=== PATIENT | male | born 1950 | race Caucasian/White ===

== ENCOUNTER → 2018-11-19 08:50 | Outpatient (CLI) | payer MEDICARE | END | disposition home or self-care (01) | LOC: D.MRI 08:50 | PROVIDERS: ATTEND Family Medicine | DX: M23.8X1 Other internal derangements of right knee (principal) ==

== ENCOUNTER → 2019-12-02 10:07 | Outpatient (CLI) | payer MEDICARE | END | disposition home or self-care (01) | LOC: D.RAD 10-27 10:30 → D.CT 10-27 11:30 → D.RAD 10-27 11:30 | PROVIDERS: ATTEND Orthopaedic Surgery | DX: S83.231A Complex tear of medial meniscus, current injury, right knee, initial encounter (principal) ==

== ENCOUNTER → 2020-01-07 14:02 | Outpatient (CLI) | payer MEDICARE ==
--- NOTE | ~2020-01-07 | EC ---
PATIENT:SOLOMON SHAIKH DATE OF SERVICE: 01/07/20 SEX: M MEDICAL RECORD: [id number] DATE OF : 50 [facility] AGE OF PATIENT: 69 ADMISSION DATE: 01/07/20 REFERRING PHYSICIAN: INTERPRETING PHYSICIAN: DIANA LYMAN MD ECHOCARDIOGRAM REPORT ECHO CHARGES 4 ECHO COMPLETE Date: 01/07/20 CLINICAL DIAGNOSIS: CHF H/O HTN/A-FIB/CAD/PR/ DEFIBRILLATOR PLACEMENT ECHOCARDIOGRAPHIC MEASUREMENTS (adult normal given) AC root (d.<3.7cm) 3.2 cm LV Septum d (<1.2 cm> 1.1 cm Valve Excursion 1.8 cm LV Septum (systole) 1.6 cm Left Atria (s.<4.0cm> 3.6 cm LVPW d(<1.2cm) 1.2 cm RV (d.<2.3cm) 2.8 cm LVPW (sytole) 1.4 cm LV diastole(<5.6CM) 7.2 cm MV E-F(>70mm/sec) cm LV systole 5.6 cm LVOT Diameter 2.0 cm MV exc.(>10mm) cm Est.ejection fraction (50-75%) % DOPPLER: LVIT cm/sec A 83.0 cm/sec E 106 cm/sec LA cm/sec RVSP 17.3 mmHg LVOT 73.0 cm/sec AOP1/2T m/s Asc. Ao 134 cm/sec RVOT 67.0 cm/sec RA cm/sec PA 87.0 cm/sec AV Gradient Peak 7.1 mmHg AV Mean 3.6 mmHg AV Area 1.7 cm MV Gradient Peak 5.0 mmHg MV Mean 2.1 mmHg MV Area cm COMMENTS: OP - HC Ross Lift Operator: 1 BRIGETTE RICHARD Supervising Chef: 3 Dr. Wu TAPE# PACS Pericardial Effusion N DATE OF SERVICE: Adequate 2D, color flow imaging, spectral Doppler, and M-mode. LVH is present. LV internal dimensions are mildly dilated. LV is mildly globally hypokinetic, EF reduced, estimated EF 40% to 45%. Aortic valve is sclerotic without evidence of stenosis by Doppler interrogation. Left atrium is normal. Mitral valve shows no prolapse. Trace MR. Right-sided chambers are grossly normal. Trace TR. ECHOCARDIOGRAM REPORT [id number] SOLOMON SHAIKH TRANSINT:[id number] Voice Confirmation ID: [id number] DOCUMENT ID: [id number] DIANA LYMAN MD CC: [id number] DICTATION DATE: 01/11/201519 HOGSHEAD FILLER: 01/12/20 0146 DEP CLI 01/07/20 [id number] [place] [address]
== END | disposition home or self-care (01) ==
LOC: D.HCCECHO 01-06 16:00
PROVIDERS: ATTEND Internal Medicine Interventional Cardiology
DX: I25.10 Atherosclerotic heart disease of native coronary artery without angina pectoris (principal); M79.605 Pain in left leg; M79.604 Pain in right leg; M79.89 Other specified soft tissue disorders

== ENCOUNTER 2020-02-15 11:59 | Outpatient (CLI) | payer MEDICARE ==
[~2020-02-15] VITALS: Ht 172.7 cm; Wt 122.8 kg
--- NOTE | ~2020-02-15 | OP ---
PATIENT NAME: SOLOMON SHAIKH MEDICAL RECORD: [id number] :50 LOCATION:D.[facility] ADMISSION DATE: SURGEON: TOLU PRASAD MD DATE OF OPERATION: 02/15/2020 PREOPERATIVE DIAGNOSES: 1. End-of-life AICD generator. 2. Coronary artery disease. 3. Hypertension. 4. Cardiomyopathy. 5. Hyperlipidemia. POSTOPERATIVE DIAGNOSES: 1. End-of-life AICD generator. 2. Coronary artery disease. 3. Hypertension. 4. Cardiomyopathy. 5. Hyperlipidemia. PROCEDURE: Left subclavian vein 4 lead AICD generator exchange. SURGEON: Tolu Prasad MD REPORT OF PROCEDURE: The patient's left chest was prepped and draped in sterile fashion. A 20 mL of 1% lidocaine with epinephrine was infused into the surrounding tissues. The oblique incision in the left superior lateral chest was reopened and using electrocautery, we dissected down to the AICD generator. This generator was eviscerated through the wound and the leads were freed up from any attachments. We then took down all 4 leads off the generator and replaced them appropriately in the new AICD generator. This was then placed back into the subcutaneous pouch and sutured down to the pectoral fascia with an interrupted 2-0 TiCron. The wound bed was irrigated out with normal saline with antibiotic solution. The subcutaneous tissues were reapproximated with interrupted 3-0 Vicryl and the skin was closed with running subcutaneous 5-0 Monocryl. COMPLICATIONS: None. CONDITION: Stable. ANESTHESIA: Local MAC. BLOOD LOSS: Minimal. TRANSINT:[id number] Voice Confirmation ID: [id number] DOCUMENT ID: [id number] TOLU PRASAD MD CC: DANYELLE GRIMALDO MD and DIANA LYMAN MD [id number] DICTATION DATE: 02/15/20 1510 FIELD OPERATIONS TECHNICIAN: 02/15/202120 DEP CLI 02/15/20 [id number] [place] [address]
--- NOTE | ~2020-02-15 | HEMODYNAMI ---
PATIENT:SOLOMON SHAIKH MEDICAL RECORD: [id number] : 50 LOCATION:[facility] ADMISSION DATE: 02/15/20 Generatedon:02/15/202015:12 Patient name: SOLOMON SHAIKH Patient #: [id number] SSN: [id number] : 1950 Date of study: 02/15/2020 Page: Of Hemodynamic Procedure Report Patient Data Patient Demographics Procedure consent was obtained First Name: SOLOMON Gender: Male Last Name: HAWA : 1950 [facility] Initial: G Age: 69 year(s) Patient #: [id number] Race: SSN: [id number] Additional ID: [id number] Contact details Address: [address] [place] [address] [facility] State: [place] City: [place] Zip code: [address] Past Medical History Allergies: No known allergies Admission Admission Data Admission Date: 02/15/2020 Admission Time: 11:59 Arrival Date: 02/15/2020 Arrival Time: 0:00 Admit Source: Other Insurance Payor: Medicare [facility] #: [id number] Height (in.): 68 BSA: 2.32 (m2) Height (cm.): 172.72 BMI: 41.17 (kg/m2) Weight (lbs.): 270.75 Weight (kg.): 122.81 Lab Results Lab Result Date: 02/15/2020 Lab Result Time: 0:00 Biochemistry Name Units Result Min Max BUN mg/dl 14 --(--*-)-- 7 18 Creatinine mg/dl 1.1 --(--*-)-- 0.6 1.3 CBC Name Units Result Min Max Hematocrit % 44.6 --(*---)-- 42 54 Hemoglobin g/dl 14.4 --(*---)-- 13.5 17.5 Procedure Procedure Types Cath Procedure Diagnostic Procedure PPM/ICD Permanent Pacer Generator Exg. Sedation Charges Moderate Sedation up to 15 minutes Procedure Description Procedure Date Procedure Date: 02/15/2020 Procedure Start Time: 14:47 Procedure End Time: 15:06 Procedure Staff Name Function Michael Rivera MD Performing Physician Tolu Chambers MD Assisting physician Marsha Mckeon RT Monitor Marbella Veloz RT Scrub Valdez Lockwood RN Nurse Procedure Data Cath Procedure Fluoroscopy Diagnostic fluoroscopy Total fluoroscopy Time: 0 time: 0 min min Diagnostic fluoroscopy Total fluoroscopy dose: 0 dose: 0 mGy mGy Estimated blood loss: 10 ml Procedure Complications No complications Procedure Medications Medication Administration Route Dosage Oxygen etCO2 Nasal cannula 2 l/min Lidocaine 2% added to field 20 Ancef (1Gm/50ml NS) I.V.P.B 1 g Ancef Irrigation Topical 1 g (1gm/500ml NS) Versed I.V. 2 mg Fentanyl I.V. 100 mcg Versed I.V. 1 mg Fentanyl I.V. 50 mcg Versed I.V. 1 mg Fentanyl I.V. 50 mcg Hemodynamics Rest BSA: 2.32 (m2) HGB: 14.4 (g/dl) O2 Consumption: Estimated: 276.67 (ml/min) O2 Co nsumption indexed: Estimated:119.25 (ml/min/m) Heart Rate: 79 (bpm) Snapshots Pre Cath Intra NCS Post Cath Vital Signs Time Heart Resp SPO2 etCO2 NIBP (mmHg) Rhythm Pain Sedation Rate (ipm) (%) (mmHg) Status Level (bpm) 14:31:43 81 13 93 0 145/102(127) NSR (Missing) 10(A) 14:36:49 72 12 95 0 151/98(135) NSR (Missing) 10(A) 14:41:07 78 23 94 0 135/91(119) NSR (Missing) 10(A) 14:45:17 86 15 92 0 132/113(130) NSR (Missing) 9(A) 14:50:36 96 14 92 2.9 146/105(135) NSR (Missing) 9(A) 14:54:46 85 15 94 19.4 144/94(122) NSR (Missing) 9(A) 14:59:00 86 12 93 2.2 148/95(135) NSR (Missing) 9(A) 15:03:18 93 11 93 10.4 150/109(132) NSR (Missing) 10(A) 15:05:03 89 10 94 11.2 150/103(135) NSR (Missing) 10(A) 15:09:31 93 12 97 26.1 155/106(131) NSR (Missing) 10(A) Medications Time Medication Route Dose Verified Delivered Reason Notes Effective ness by by 14:30:52 Oxygen etCO2 2 Michael Buffie used for Nasal l/min NicolePeter Lockwood project development manager cannula 14:31:06 Lidocaine added 20ml Michael Vasquezian used for 2% to vial St Peter Chambers MD procedure field x 2 14:31:20 Ancef I.V.P.B 1 g Michael Buffie used for (1Gm/50ml Nicole Lockwood project development manager NS) 14:31:28 Ancef Topical 1 g Michael Buffie used for Irrigation Nicole Lockwood project development manager (1gm/500ml NS) 14:41:59 Versed I.V. 2 mg Michael Buffie for Nicole Lockwood RN sedation 14:42:06 Fentanyl I.V. 100 Michael Buffie for [facility] Nicole Lockwood RN sedation 14:49:08 Versed I.V. 1 mg Michael Buffie for Nicole Lockwood RN sedation 14:49:13 Fentanyl I.V. 50 Michael Buffie for [facility] Nicole Lockwood RN sedation 14:56:38 Versed I.V. 1 mg Michael Buffie for Nicole Lockwood RN sedation 14:56:42 Fentanyl I.V. 50 Michael Buffie for [facility] Nicole Lockwood RN sedation Procedure Log Time Note 13:58:16 Diagnostic Cath Status : Elective 13:58:58 Time tracking: Regular hours (M-F 7:00 - 5:00) 13:59:02 Plan of Care:Hemodynamics will remain stable., Cardiac rhythm will remain stable., Comfort level will be maintained., Respiratory function will remain adequate., Patient/ family verbilizes understanding of procedure., Procedure tolerated without complication., Recovers from procedure without complications.. 14:06:04 H&P Date Dictated: 02/08/2020 Within 30 days and on chart.. 14:06:05 Pre-procedure instructions explained to patient. 14:06:06 Pre-op teaching completed and patient verbalized understanding. 14:06:07 Family in waiting room. 14:06:09 Patient NPO since Midnight. 14:08:14 Patient allergic to No known allergies 14:: Arrival Date: 02/15/2020 12:00:00 AM 14:: Admit Source: Other 14:: Insurance Payor : Medicare 14:09:03 Patient Height : 68 inches 14::08 Patient Weight : 270.75 lbs 14:37 Lab Result : Hemoglobin 14.4 g/dl : Lab Result : Hematocrit 44.6 % : Lab Result : Creatinine 1.1 mg/dl : Lab Result : BUN 14 mg/dl 14: Informed consent obtained and on chart 14:: Valdez Lockwood RN sent for patient. Start room use. 14:19: Patient received from Pre/Post Procedure Room to CCL 3 Alert and oriented. Tansferred to table in Supine position. 14:19:10 Warm blankets applied, and chrystal hugger turned on for patient comfort. 14:19:10 Correct patient and procedure confirmed by team. 14:19:11 ECG and BP/O2 sat monitors applied to patient. 14:30:34 Vital chart was started 14::52 Oxygen 2 l/min etCO2 Nasal cannula was administered by Valdez Lockwood RN; used for procedure; Verbal order read back and verified. 14:31:06 Lidocaine 2% 20ml vial x 2 added to field was administered by Tolu Chambers MD; used for procedure; Verbal order read back and verified. 14:31:20 Ancef (1Gm/50ml NS) 1 g I.V.P.B was administered by Valdez Lockwood RN; use d for procedure; Verbal order read back and verified. 14:31:28 Ancef Irrigation (1gm/500ml NS) 1 g Topical was administered by Valdez Lockwood RN; used for procedure; Verbal order read back and verified. 14:32:34 Is the patient allergic to Iodine/contrast media? No. 14:32:37 Was the patient premedicated? N/A 14:32:39 Is patient on blood thinner?No 14:32:40 Patient diabetic? No. 14:32:42 If diabetic: On Metformin? N/A 14:32:43 - 14:32:44 ----Pre-sedation anethsthesia assessment.---- 14:32:47 Previous problem with sedation/anesthesia? No ? 14:32:48 Snore? Yes 14:32:49 Sleep apnea? No 14:32:50 Deviated septum? No 14:32:51 Opens mouth fully? Yes 14:32:52 Sticks out tongue? Yes 14:32:56 Airway obstruction? Yes asthma 14:32:59 Dentures? No ? 14:33:05 Patient pain scale 0/10 ?. 14:33:13 IV patent on arrival in left antecubital with 0.9% NaCl at [facility]. 14:33:16 Lab results completed and on chart. 14:33:21 Stress Test: no; N/A ? 14:33:27 Left chest area was prepped with chlora-prep and draped in sterile fashion 14:33:28 Alarms reviewed by R. N. 14:33:28 Sharps counted by scrub and verified by R.N. 14:33:33 Use device set OSMAR PPM 14:33:37 Cautery Tip Medical Accounts Receivable Specialist opened to sterile field. 14:33:39 Cautery Pushbutton Pencil opened to sterile field. 14:33:39 Mepilex Dressing ([id number]) opened to sterile field. 14:33:49 Full Disclosure recording started 14:33:52 Baseline sample Acquired. 14:35:03 Rhythm: sinus rhythm 14:40:43 3-0 Vicryl Single Pack [id number] opened to sterile field. 14:40:44 5-0 Monocryl PS2 [id number] opened to sterile field. 14:41:13 --------ALL STOP TIME OUT------ 14:41:13 Final Timeout: patient, procedure, and site verified with staff and physician. All members of the team are in agreement. 14:41:16 Left chest site verified by team. 14:41:25 Fire Safety Assessment: A--An alcohol-based skin anteseptic being used preoperatively., C--Open oxygen or nitrous oxide is being used., D--An ESU, laser, or fiber-optic light is being used. 14:41:31 Physical assessment completed. ASA score P 2 - A patient with mild systemic disease as per Michael Rivera MD. 14:41:39 Sedation plan: IV Moderate Sedation Medication:Versed, Fentanyl 14:41:59 Versed 2 mg I.V. was administered by Valdez Lockwood RN; for sedation; Verbal order read back and verified. 14:42:06 Fentanyl 100 mcg I.V. was administered by Valdez Lockwood RN; for sedation; Verbal order read back and verified. 14:44:17 Procedure started. 14:47:06 [employer] players club representative YESENIA RAMOS present for procedure. 14:47:16 Grounding pad site Left thigh. 14:47:17 Grounding pad site free from injury. 14:47:18 Lidocaine 1% was administered to left subclavicular area by Tolu Chambers MD . 14:47:50 Pre sharps counted by scrub and verified by RN: Sutures: 7; Sponges: 5; Stick needles: 2; Skin needles: 2; Blade: 1; Cautery: 1 14:49:07 2-0 Ticron Multipack ([id number]) opened to sterile field. 14:49:08 Versed 1 mg I.V. was administered by Valdez Lockwood RN; for sedation; Verbal order read back and verified. 14:49:13 Fentanyl 50 mcg I.V. was administered by Valdez Lockwood RN; for sedation; Verbal order read back and verified. 14:49:43 Incision made to left subclavicular area. 14:52:27 Generator pocket made/opened. 14:52:49 PPM Dual was removed.. 14:53:00 FreeChargea MRI PPM Dual Generator [id number] opened to sterile field. 14:54:00 PPM Dual was attached to lead(s) and inserted into pocket. 14:55:56 PPM Dual was inserted subcutaneously to left chest. 14:56:38 Versed 1 mg I.V. was administered by Valdez Lockwood RN; for sedation; Verbal order read back and verified. 14:56:42 Fentanyl 50 mcg I.V. was administered by Valdez Lockwood RN; for sedation; Verbal order read back and verified. 14:57:02 Generator was sutured in place with 2-0 ticron. 15:01:23 Device pocket was irrigated with Ancef. 15:01:25 Subcutaneous closure was completed with 3-0 vicryl. 15:01:35 Skin closure was completed with 5-0 monocryl. 15:03:10 Lt Chest incision was dressed with Mepilex dressing. 15:03:32 Post sharps counted by scrub and verified by RN: Sutures: 3; Sponges: 5 ; Stick needles: 2; Skin needles: 2; Blade: 1; Cautery: 1 15:04:02 Procedure ended.(Physican Out) 15:04:19 Fluoroscopy time 00.00 minutes. 15:04:22 Fluoroscopy dose: 0 mGy 15:04: Flurop Dose total: 0 15:04:24 Dose Area Product ? mGy/cm. 15:04:27 Sharps counted by scrub and verified by R.N. 15:04:35 Post-procedure physical assessment completed. ASA score P 2 - A patient with mild systemic disease as per Michael Rivera MD. 15:04:41 Post procedure rhythm: paced 15:04:44 Estimated blood loss: 10 ml 15:04:46 Post procedure instruction explained to patient.Patient verbalizes understanding. 15:04:46 Patient needs reinforcement of post procedure teaching. 15:05:20 Procedure type changed to Cath procedure, Diagnostic procedure, PPM/ICD , Permanent Pacer Generator Exg., Sedation Charges, Moderate Sedation up to 15 minutes 15:06:17 Procedure and supply charges have been captured, reviewed, submitted an d are correct. 15:06:22 Procedure Complication : No complications 15:06:29 Operative report dictated upon procedure completion. 15:06:29 See physician's report for complete and final results. 15:06:35 Report given to Pre/Post Procedure Room. 15:06:39 Patient transfered to Pre/Post Procedure Room with Stretcher. 15:06:42 Procedure ended. 15:06:42 Full Disclosure recording stopped 15:10:17 Vital chart was stopped 15:10:18 End room use (Document Last) 15:10:53 Medtronic 4074-52 PPM Lead opened to sterile field. Device Usage Item Name Manufacture Quantity Catalog Hospital Part Current Minimal Lot# / Number Charge Number Stock Stock Serial# Code Cautery Tip Microtek 1 [id number] [id number] 5 Medical Accounts Receivable Specialist [employer] Cautery Microtek 1 [id number] [id number] 90064 426503 5 Pushbutton [employer] Pencil Mepilex Cardinal 1 [id number] [id number] 012197 500462 5 Dressing Health (982626) 3-0 Vicryl Ethicon 1 [id number] 975202 977241 907831 5 Single Pack [id number] 5-0 Monocryl Ethicon 1 [id number] 628754 082832 5 PS2 Y495G 2-0 Ticron Ethicon 2 [id number] 104719 07777 544373 5 Multipack ([id number]) Medtronic Medtronic 1 [id number] 532455 660996 269024 5 Advisa MRI [id number] PPM Dual EXP Generator : [id number] 11/29/2020 Medtronic Medtronic 1 4074-52 199202 [id number] 5 4074-52 PPM Lead Signature Audit [place] Stage Time Signature Unsigned Intra-Procedure 02/15/2020 Marsha Mckeon 3:10:53 PM RT(R) Intra-Procedure 02/15/2020 Valdez Lockwood RN 3:12:08 PM Intra-Procedure 02/15/2020 Michael Slater 3:12:36 PM Peter JOSEPH [address] [place] [address]
[2020-02-15 13:09] VITALS: BP 162/99; Ht 172.7 cm; Wt 122.8 kg
[2020-02-15 13:16] LABS: ANION GAP 10.1 mmol/L (8-16); CARBON DIOXIDE 28.2 mmol/L (21.0-32.0); CREATININE - SERUM 1.1 mg/dL (0.6-1.3); POTASSIUM - SERUM 4.3 mmol/L (3.5-5.1)
[2020-02-15 13:20] LABS: HEMATOCRIT 44.6 % (42.0-54.0); HEMOGLOBIN 14.4 g/dL (13.5-17.5); MCH 29.1 pg (26.0-34.0); MCHC 32.3 g/dL (31.0-37.0); MCV 90.1 fL (80.0-100.0); MEAN PLATELET VOLUME 10.6 fL (7.4-10.4); RBC 4.95 10x6/uL (4.20-6.10); RDW 14.6 % (11.5-14.5); WBC 7.5 10x3/uL (4.8-10.8)
[2020-02-15 13:24] LABS: APTT 28.7 SECONDS (22.8-39.4); INR 0.94 (0.85-1.17); PROTIME 12.5 SECONDS (11.6-15.0)
[2020-02-15] MEDS ORDERED: HYDROCODON-ACE1 EA10 PO ×2 (15:04→15:22)
--- NOTE | 2020-02-15 15:20 | NUR ---
PT RECEIVED BACK TO ROOM VIA STRETCHER FROM SEGMENT ASSEMBLER. XRAY AT BS. PT AWAKE BUT DROWSY, PT PLACED ON CARDIAC MONITORS AND O2 VIA NC AT 2L. SM MEDIPLEX DRESSING TO U LEFT CHEST, NO BLEEDING OR SWELLING NOTED. PT DENIES PAIN OR DISCOMFORT. VSS. HR PACED 78, BP 143/92, RR 10. NO IV, IT WAS PULLED OUT IN THE SEGMENT ASSEMBLER. CALL LIGHT IN REACH, AT BS.
[2020-02-15] MEDS ORDERED: ALDACTONE25 MG PO (15:21)
--- NOTE | 2020-02-15 15:45 | NUR ---
PT SLEEPING COMFORTABLY. VSS. MEDIPLEX DRESSING CDI. AT BS, CALL LIGHT IN REACH
--- NOTE | 2020-02-15 16:30 | NUR ---
1620 SANDWICH TRAY AND DRINK SERVED. PT RESTING COMFORTABLY. TOLERATED SANDWICH TRAY AND DRINK. MEDIPLEX DRESSING CDI NO S/S BLEEDING. VSS.
--- NOTE | 2020-02-15 16:48 | NUR ---
DISCHARGE INSTRUCTIONS REVIEWED W PT AND , BOTH VERBALIZED UNDERSTANDING. MONITORS REMOVED AND PT UP TO DRESS FOR DISCHARGE WITH ASSIST FROM .
--- NOTE | 2020-02-15 17:05 | NUR ---
PT TO BR VIA WC, VOIDING W/O DIFFICULITY. PT THEN DISCHARGED VIA WC TO WAITING IN PRIVATE VEHICLE. PT HAD ALL BELONGINGS AND DISCHARGE PAPERWORK
== END 2020-02-15 17:00 | disposition home or self-care (01) ==
LOC: D.CATH 11:59
PROVIDERS: ATTEND Internal Medicine Interventional Cardiology
DX: Z45.02 Encounter for adjustment and management of automatic implantable cardiac defibrillator (principal); I25.10 Atherosclerotic heart disease of native coronary artery without angina pectoris; I10 Essential (primary) hypertension; I42.9 Cardiomyopathy, unspecified; E78.5 Hyperlipidemia, unspecified; I25.2 Old myocardial infarction; J45.909 Unspecified asthma, uncomplicated

== ENCOUNTER → 2020-04-04 17:17 | Outpatient (CLI) | payer MEDICARE ==
[2020-02-15 13:09] VITALS: BMI 41.1
[~2020-04-04 17:17] MED LIST: ALDACTONE25 MG PO; HYDROCODON-ACE1 EA10 PO
== END | disposition home or self-care (01) ==
LOC: D.LABREF 17:17
PROVIDERS: ATTEND Orthopaedic Surgery
DX: M17.11 Unilateral primary osteoarthritis, right knee (principal)

== ENCOUNTER 2020-04-06 08:41 | Inpatient (IN) | payer MEDICARE ==
[~2020-04-06] VITALS: Ht 180.3 cm; Wt 125.2 kg
--- NOTE | ~2020-04-06 | HEMODYNAMI ---
PATIENT:SOLOMON SHAIKH MEDICAL RECORD: [id number] : 50 LOCATION[id number] ADMISSION DATE: 05/01/20 Generatedon:05/04/202011:32 Patient name: SOLOMON SHAIKH Patient #: [id number] SSN: [id number] : 1950 Date of study: 05/04/2020 Page: Of Hemodynamic Procedure Report Patient Data Patient Demographics Procedure consent was obtained First Name: SOLOMON Gender: Male Last Name: HAWA : 1950 Middle Initial: Kevin Age: 69 year(s) Patient #: [id number] Race: SSN: [id number] Additional ID: [id number] Contact details Address: [address] [place] [address] [facility] State: [place] City: [place] Zip code: [address] Past Medical History Allergies: No known allergies Admission Admission Data Admission Date: 05/01/2020 Admission Time: 5:50 Arrival Date: 05/04/2020 Arrival Time: 0:00 Admit Source: Other Insurance Payor: Medicare Room #: D.2114 [facility] #: [id number] Height (in.): 70.87 BSA: 2.41 (m2) Height (cm.): 180 BMI: 38.58 (kg/m2) Weight (lbs.): 275.58 Weight (kg.): 125 Lab Results Lab Result Date: 05/04/2020 Lab Result Time: 0:00 Biochemistry Name Units Result Min Max BUN mg/dl 13 --(--*-)-- 7 18 Creatinine mg/dl 1 --(--*-)-- 0.6 1.3 eGFR ml/min 79.71173 *-(----)-- 90 120 NONAFRICAN CBC Name Units Result Min Max Hemoglobin g/dl 11.6 *-(----)-- 13.5 17.5 Procedure Procedure Types Cath Procedure Diagnostic Procedure LHC [facility] w/Coronaries Sedation Charges Moderate Sedation up to 15 minutes PCI Procedure Coronary Stent Coronary Stent Initial Hemochron ACT Test Procedure Description Procedure Date Procedure Date: 05/04/2020 Procedure Start Time: 11:04 Procedure End Time: 11:23 Procedure Staff Name Function Michael Rivera MD Performing Physician Fernanda Turcios RT Monitor Valdez Lockwood RN Nurse Berkley Logan RT Scrub Indication Chest discomfort Procedure Data Cath Procedure Fluoroscopy Diagnostic fluoroscopy Total fluoroscopy Time: 4.7 time: 4.7 min min Diagnostic fluoroscopy Total fluoroscopy dose: dose: 1411 mGy 1411 mGy Contrast Material Contrast Material Type Amount (ml) Isovue 300 83 Entry Location Entry Primary Successful Side Size Upsize Upsize Entry Closure Perez ccessful Closure Location (Fr) 1 (Fr) 2 (Fr) Remarks Device Remarks Radial Right 6 Fr Mechanical artery Short Compression Estimated blood loss: 5 ml Diagnostic catheters Device Type Used For End Catheter Placement DIAGNOSTIC Buhl 110cm 5 Procedure Fr catheter ([id number]) DIAGNOSTIC AR MOD 5Fr Procedure Catheter ([id number]) Procedure Complications No complications Procedure Medications Medication Administration Route Dosage Oxygen etCO2 Nasal cannula 2 l/min Lidocaine 2% added to field 20 Heparin Flush Bag added to field 2 bags (1000units/500ml NS) 0.9% NaCl I.V. 100 ml/hr Radial Cocktail I.A. 1 syringe (Verapamil 2mg/Nitro 400mcg/Heparin 1500units) Versed I.V. 1 mg Fentanyl I.V. 50 mcg Heparin Bolus I.V. 5000 units Integrilin (Bolus I.V. 11.3 ml 2mg/ml) Benadryl I.V. 50 mg Dobutamine I.V. drip 5 mcg/kg/min (500mg/250ml D5W) Plavix P.O. 600 mg Hemodynamics Rest BSA: 2.41 (m2) HGB: 11.6 (g/dl) O2 Consumption: Estimated: 299.87 (ml/min) O2 Co nsumption indexed: Estimated:124.43 (ml/min/m) Heart Rate: 93 (bpm) Pressure Samples Time Site Value (mmHg) Purpose Heart Use Rate(bpm) 11:05 LV 88/0,-1 Snapshot 95 Gradients Valve Time Site Site Mean SEP/DFP Peak To Heart Use 1 2 (mmHg) (sec/min) Peak Rate (mmHg) (bpm) Aortic 11:06 LV AO 95 Snapshots Pre Cath Intra NCS Post Cath Vital Signs Time Heart Resp SPO2 etCO2 NIBP (mmHg) Rhythm Pain Sedation Rate (ipm) (%) (mmHg) Status Level (bpm) 10:52:25 92 15 95 12 152/100(128) NSR 0 (11) 10(A) , No pain 10:57:01 92 17 95 8.3 162/85(134) NSR 0 (11) 10(A) , No pain 11:01:23 90 18 94 0 141/91(114) NSR 0 (11) 10(A) , No pain 11:05:47 96 13 93 10.5 117/74(89) NSR 0 (11) 9(A) , No pain 11:09:57 93 17 93 7.5 117/74(97) NSR 0 (11) 9(A) , No pain 11:14:09 88 14 91 10.5 133/83(99) NSR 0 (11) 9(A) , No pain 11:18:21 88 19 93 0 135/82(106) NSR 0 (11) 9(A) , No pain 11:23:20 88 18 95 21.1 132/92(115) NSR 0 (11) 10(A) , No pain Medications Time Medication Route Dose Verified Delivered Reason Notes Effectiveness by by 10:55:40 Benadryl I.V. 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 100 ml/hr Michael Kellogg Per physician [facility] Lockwood RN, MD 10:59:45 Versed I.V. 1 mg Michael Kellogg for sedation [facility] Peter Lockwood RN, MD 10:59:50 Fentanyl I.V. 50 mcg Michael Kellogg for sedation [facility] Peter Lockwood RN, MD 11:03:51 Radial Cocktail I.A. 1 syringe Michael Rodriguez for (Verapamil [place] vasodilation 2mg/Nitro MD JOSEPH 400mcg/Heparin 1500units) 11:13:55 Heparin Bolus I.V. 5000 units Michael Kellogg for verified [facility] Peter Lockwood RN anticoagulation with dr MD hackett 11:17:21 Integrilin I.V. 11.3 ml Michael Kellogg for wasted (Bolus 2mg/ml) [facility] Lockwood RN antiplatelet 8.7 ml therapy of vial 11:24:04 Dobutamine I.V. 5 Michael Kellogg Per physician (500mg/250ml drip mcg/kg/min [facility] Lockwood RN D5W) 11:24:25 Plavix P.O. 600 mg Michael Kellogg for [facility] Lockwood RN antiplatelet therapy Procedure Log Time Note 10:13:12 Arrival Date: 05/04/2020 12:00:00 AM 10:13:14 Admit Source: Other 10:13:17 Insurance Payor : Medicare 10:13:34 Patient Height : 70.87 inches 10:13:37 Patient Weight : 275.58 lbs 10:14:33 Lab Result : BUN 13 mg/dl 10:14:33 Lab Result : eGFR NONAFRICAN 79.55069 ml/min 10:14:33 Lab Result : Hemoglobin 11.6 g/dl 10:14:33 Lab Result : Creatinine 1 mg/dl 10:15:10 Indication : Chest discomfort 10:15:37 Procedure Status Urgent Heart Cath (IP). 10:16:26 Berkley Logan RT(R) (CV) sent for patient. Start room use. 10:16:28 Time tracking: Regular hours (M-F 7:00 - 5:00) 10:16:34 Plan of Care:Hemodynamics will remain stable., Cardiac rhythm will remain stable., Comfort level will be maintained., Respiratory function will remain adequate., Patient/ family verbilizes understanding of procedure., Procedure tolerated without complication., Recovers from procedure without complications.. 10:16:40 Patient received from Med II to CCL 2 Alert and oriented. Tansferred to table in Supine position. 10:16:43 Signed procedure consent form obtained from patient. 10:16:55 H&P Date Dictated: 05/03/2020 Within 30 days and on chart., H&P Addendum completed by physician on day of procedure. (MUST COMPLETE FOR ALL OUTPATIENTS). 10:31:48 Patient allergic to No known allergies 10:51:16 Vital chart was started 10:54:51 Baseline sample Acquired. 10:54:54 Full Disclosure recording started 10:54:58 Family in patients room. 10:55:00 Patient NPO since Midnight. 10:55:05 Is the patient allergic to Iodine/contrast media? No. 10:55:07 Was the patient premedicated? Yes 10:55:08 Is patient on blood thinner?Yes 10:55:13 ACC The patient was administered the following blood thiners within the last 24 hours: Eliquis 10:55:16 Patient diabetic? No. 10:55:20 Snore? Yes 10:55:22 Sleep apnea? No 10:55:26 Airway obstruction? Unknown ? 10:55:30 Patient pain scale 0/10 ?. 10:55:39 IV patent on arrival in left forearm with 0.9% NaCl at KVO. 10:55:40 Benadryl 50 mg I.V. was administered by Valdez Lockwood RN; used for procedure; Verbal order read back and verified. 10:55:43 Lab results completed and on chart. 10:55:51 Right Radial & Left Groin area was prepped with chlora-prep and draped in sterile fashion 10:55:52 Alarms reviewed by R. N. 10:55:53 Sharps counted by scrub and verified by R.N. 10:55:55 Physician arrived 10:55:56 --------ALL STOP TIME OUT------ 10:55:57 Final Timeout: patient, procedure, and site verified with staff and physician. All members of the team are in agreement. 10:56:01 Right Radial & Left Groin site verified by team. 10:56:05 Fire Safety Assessment: A--An alcohol-based skin anteseptic being used preoperatively., C--Open oxygen or nitrous oxide is being used., D--An ESU, laser, or fiber-optic light is being used. 10:56:11 Physical assessment completed. ASA score P 2 - A patient with mild systemic disease as per Michael Rivera MD. 10:56:15 2) 60-89 Mildly reduced kidney function, and other findings (as for stage 1) point to kidney disease. 10:56:18 Maximum allowable contrast dose (3.7 X eGFR X 0.75)220 ml. 10:56:23 Sedation plan: IV Moderate Sedation Medication:Versed, Fentanyl 10:56:28 Use device set Radial Dx or PCI 10:59:07 Oxygen 2 l/min etCO2 Nasal cannula was administered by Valdez Lockwood RN; used for procedure; Verbal order read back and verified. 10:59:14 Lidocaine 2% 20ml vial added to field was administered by Michael Rivera MD; for local anesthetic; Verbal order read back and verified. 10:59:18 ACIST Syringe (99126) opened to sterile field. 10:59:19 Heparin Flush Bag (1000units/500ml NS) 2 bags added to field was administered by Michael Rivera MD; used for procedure; Verbal order read back and verified. 10:59:19 Medline Cath Pack ([id number]) opened to sterile field. 10:59:20 Bag Decanter (2002S) opened to sterile field. 10:59:21 ACIST Hand Control (49585) opened to sterile field. 10:59:21 ACIST Manifold (86471) opened to sterile field. 10:59:27 0.9% NaCl 100 ml/hr I.V. was administered by Valdez Lockwood RN; Per physician; Verbal order read back and verified. 10:59:27 MBrace Wrist Support ([id number]) opened to sterile field. 10:59:29 EMERALD Guide Wire (093-303) opened to sterile field. 10:59:30 SHEATH 6FR RAIN ([id number]) opened to sterile field. 10:59:45 Versed 1 mg I.V. was administered by Valdez Lockwood RN; for sedation; Verbal order read back and verified. 10:59:50 Fentanyl 50 mcg I.V. was administered by Valdez Lockwood RN; for sedation; Verbal order read back and verified. 11:03:51 Radial Cocktail (Verapamil 2mg/Nitro 400mcg/Heparin 1500units) 1 syringe I.A. was administered by Michael Rivera MD; for vasodilation; Verbal order read back and verified. 11:04:10 Procedure started. 11:04:21 Local anesthetic to right radial artery with Lidocaine 2% by Michael Rivera MD.INITIAL ACCESS ONLY 11:04:32 A 6 Fr Short sheath was inserted into the Right Radial artery 11:04:37 J wire advanced. 11:04:46 A DIAGNOSTIC Buhl 110cm 5 Fr catheter (945160) was advanced over the wire and used for Procedure. 11:04:58 LV angiography performed. 11:06:15 EF : 20 % 11:06:40 LCA angiography performed. 11:08:47 Catheter removed. 11:09:02 A DIAGNOSTIC AR MOD 5Fr Catheter (316592S) was advanced over the wire and used for Procedure. 11:09:08 RCA angiography performed. 11:11:20 Catheter removed. 11:13:18 Proceeding to intervention. 11:13:33 Pre PCI Site: [place] mRCA has 80% stenosis. 11:13:44 6 Fr hs1 guide catheter was inserted over the wire 11:13:55 Heparin Bolus 5000 units I.V. was administered by Vadlez Lockwood RN; for anticoagulation; verified with dr hackett Verbal order read back and verified. 11:14:27 BMW 300cm [place] 2 J wire ([id number]) opened to sterile field. 11:14:28 INFLATOR Merit BasixCompak (YL3692) opened to sterile field. 11:14:29 GUIDE 6FR HS I catheter (LA6HSI) opened to sterile field. 11:14:52 BMW wire advanced. 11:17:21 Integrilin (Bolus 2mg/ml) 11.3 ml I.V. was administered by Valdez Lockwood RN; for antiplatelet therapy; wasted 8.7 ml of vial Verbal order read back and verified. 11:19:25 Place stent Inflation Number: 1 A INTEGRITY 4.0 x 18 stent ([id number]) was prepped and advanced across the Mid RCA 80. The stent was deployed at 14 CHALO for 0:23 (min:sec) 0. 11:19:55 ZEPHYR LARGE TR BAND (391456) opened to sterile field. 11:20:04 Stent catheter was removed intact over wire. 11:20:29 Sheath removed intact; hemostasis achieved with Mechanical Compression to the Right Radial artery. 11:20:32 Procedure ended.(Physican Out) 11:21:10 Fluoroscopy time 04.70 minutes. 11:21:16 Fluoroscopy dose: 1411 mGy 11:21:16 Flurop Dose total: 1411 11:21:22 Dose Area Product 66297 mGy/cm. 11:21:33 Contrast amount:Isovue 300 83ml. 11:21:35 Maximum allowable dose exceeded? No. 11::39 Hammond band inflated with 10cc of air. 11::40 Insertion/operative site no bleeding no hematoma. 11:21:41 Post Procedure Pulses reassessed and unchanged 11:21:45 Post-procedure physical assessment completed. ASA score P 3 - A patient with severe systemic disease as per Michael Rivera MD. 11:21:48 Post procedure rhythm: unchanged. 11:21:51 Estimated blood loss: 5 ml 11:21:53 Post procedure instruction explained to patient.Patient verbalizes understanding. 11:21:55 Patient needs reinforcement of post procedure teaching. 11:22:37 Procedure type changed to Cath procedure, Diagnostic procedure, LHC, [facility] w/Coronaries, Sedation Charges, Moderate Sedation up to 15 minutes, PCI procedure, Coronary Stent, Coronary Stent Initial, Hemochron ACT Test 11::38 Procedure and supply charges have been captured, reviewed, submitted and are correct. 11:23:14 Procedure Complication : No complications 11:23:16 Vital chart was stopped 11::21 [facility] Findings: MVD- PCI performed (see procedure note) 11:23:29 Report given to [facility]. 11:23:33 Patient transfered to [facility] with Bed. 11::35 Procedure ended. 11::35 Full Disclosure recording stopped 11:23:48 End room use (Document Last) 11:24:04 Dobutamine (500mg/250ml D5W) 5 mcg/kg/min I.V. drip was administered by Valdez Lockwood RN; Per physician; Verbal order read back and verified. 11:24:07 End room use (Document Last) 11:24:25 Plavix 600 mg P.O. was administered by Valdez Lockwood RN; for antiplatelet therapy; Verbal order read back and verified. 11:24:40 End room use (Document Last) 11:27:41 ACT drawn and resulted at out of range high seconds. (normal therapeutic range 180-240 seconds). Intervention Summary Intervention Notes Time ActionType Lesion and Equipment Action# Pressure Duration Attributes Used 11:19:25 Place stent Mid RCA INTEGRITY 1 14 00:23 4.0 x 18 stent ([id number]) Device Usage Item Name Manufacture Quantity Catalog Hospital Part Current Minim al Lot# / Number Charge Number Stock Stock Serial# Code ACIST Acist 1 19263 734209 759091 304498 20 Syringe Medical (87760) Systems Inc Medline Cath Medline 1 [id number] 927794 10145 695292 5 Pack ([id number]) Bag Decanter Microtek 1 2001S 662968 95940 126413 5 (2001S) Medical Inc. ACIST Hand Acist 1 13446 735847 649772 940401 5 Control Medical (49243) Systems Inc ACIST Acist 1 12387 617778 342252 373871 5 Manifold Medical (99667) Systems Inc MBrace Wrist Advanced 1 140-0250-00 269555 31530 036760 5 Support Vascular ([id number]) Dynamics EMERALD Cardinal 1 502-455 704978 669280 406973 5 Guide Wire [facility] (502455) SHEATH 6FR Cardinal 1 0284744 770997 9114714 232837 5 [facility] (4345893) DIAGNOSTIC Terumo 1 405013 170494 792884 226064 5 Buhl 110cm 5 Fr catheter (653135) DIAGNOSTIC Cardinal 1 [id number] 378878 723326 356481 15 AR MOD 5Fr Health Catheter (430200P) BMW 300cm [place] 1 [id number] 081498 319528 019335 5 [place] 2 Vascular J wire (9638944X) INFLATOR Merit 1 DQ2073 628098 592787 501441 15 Social Game Universe Medical BasixCompak (QB6241) GUIDE 6FR HS Medtronic 1 LA6HSI 659426 38102 224082 1 I catheter (LA6HSI) INTEGRITY Medtronic 1 [id number] 223416 884247 697781 5 [id number] 4.0 x 18 stent ([id number]) ZEPHYR LARGE Cardinal 1 326698 570610 5900171 941387 5 TR X Plus Two Solutions (671365) Signature Audit [place] Stage Time Signature Unsigned Intra-Procedure 05/04/2020 Fernanda Turcios 11:24:07 AM RT(R) Intra-Procedure 05/04/2020 Valdez Lockwood RN 11:24:40 AM Intra-Procedure 05/04/2020 Michael Slater 11:32:02 AM Peter JOSEPH Signatures Performing Physician : Signature : Michael Rivera MD Date : Time : Monitor : Fernanda Tam Signature : RT Date : Time : Nurse : Buffie Lockwood RN Signature : Date : Time : [address] [place] [address]
[2020-04-26 10:11] LABS: EOSINOPHILS 5.2 % (0-7); HEMATOCRIT 45.5 % (42.0-54.0); HEMOGLOBIN 14.8 g/dL (13.5-17.5); IMMATURE GRANULOCYTES 0.6 % (0-5); MCH 29.2 pg (26.0-34.0); MCHC 32.5 g/dL (31.0-37.0); MCV 89.9 fL (80.0-100.0); MEAN PLATELET VOLUME 10.7 fL (7.4-10.4); MONOCYTES 7.8 % (2-11); NEUTROPHILS 60.4 % (40-80); PLATELET COUNT 183 10x3/uL (130-400); RBC 5.06 10x6/uL (4.20-6.10); RDW 14.2 % (11.5-14.5); WBC 6.9 10x3/uL (4.8-10.8)
[2020-04-26 10:17] LABS: ANION GAP 8.9 mmol/L (8-16); CALCIUM 9.2 mg/dL (8.5-10.1); CARBON DIOXIDE 28.6 mmol/L (21.0-32.0); CREATININE - SERUM 1.2 mg/dL (0.6-1.3); POTASSIUM - SERUM 4.5 mmol/L (3.5-5.1)
[2020-04-26 10:21] LABS: BILIRUBIN NEGATIVE (NEGATIVE); KETONE NEGATIVE (NEGATIVE); NITRITE NEGATIVE (NEGATIVE); UROBILINOGEN NORMAL mg/dL (< 2)
[2020-04-26 10:29] LABS: APTT 27.2 SECONDS (22.8-39.4); INR 0.93 (0.85-1.17); PROTIME 12.5 SECONDS (11.6-15.0)
[2020-05-01] VITALS (13 sets, daily range): BP systolic 97–148; BP diastolic 61–90; BMI 38.5; BMI 38.3
--- NOTE | 2020-05-01 08:27 | NUR ---
THROUGH TRAFFIC KEPT TO A MINIMUM. HIBACLENS AND ALCOHOL USED TO CLEAN BEFORE PREPPING. STERILE GOWNED AND GLOVED TO PREP WITH CHLORAPREP.
--- NOTE | 2020-05-01 10:44 | NUR ---
PT ARRIVED TO UNIT. VS STABLE. QUICK START, ADMISSION ASSESSMENT, ADMISSION HISTORY AND SUICIDE SCREEN COMPLETED. MEDS GIVEN PER EMAR. NOT AT BEDSIDE AT THIS TIME. PT SLEEPING AT THIS TIME. EASILY AWAKENED. CL IN REACH. WCTM.
--- NOTE | 2020-05-01 10:53 | NUR ---
PT HAS ARRIVED. PUT BELONGINGS IN ROOM. MADE SURE I HAD THE RIGHT PHONE NUMBER AND SHE HAS STEPPED OUTSIDE. PT SLEEPING. VS STABLE. CL IN REACH. WCTM
--- NOTE | 2020-05-01 14:01 | MORECARE ---
CASE MANAGEMENT DISCHARGE SUMMARY PATIENT: SOLOMON ZAIDI UNIT: [id number] ADM DATE: 05/01/20 AGE: 69 : 50 SEX: M ROOM/BED: D.1211 AUTHOR: JACKIE,DOC PHYSICIAN: REFERRING PHYSICIAN: FATIMAH MARIANO MD DATE OF SERVICE: 05/01/20 Discharge Plan Patient Name: SOLOMON ZAIDI Facility: [facility]:Ethel : 1950 Planned Disposition: Anticipated Discharge Date: 05/04/20 Discharge Date: Expected LOS: 3 Initial Reviewer: [email or web address] Initial Review Date: 05/01/2020 Generated: 05/01/20 3:00 pm Comments DCP- Discharge Planning Updated by [email or web address]: Pearl Grubbs on 05/01/20 12:[address] CM met with patient and , Oly Zaidi ([phone]) regarding dc plans. Patient is drowsy and request that his in interview. 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 PCP: Dr. York. Pharmacy: [facility]. DME: walker, cane. A CPM was delivered to the home, as well OIL AND GAS RECRUITER. CM discussed HHS, OP Therapy, Rehab, SNF. PT has not worked with the patient as yet, so CM will re-visit tomorrow in order to determine DC needs. CM left a copy of HH agencies and OP Therapy with the patient's . CM will follow and assist PRN with DC needs. DCPIA - Discharge Planning Initial Assessment Updated by [email or web address]: Pealr Grubbs on 05/01/20 1:58 pm * Is the patient Alert and Oriented? Yes * How many steps to enter\exit or inside your home? 3 wide w/r * PCP Dr. York * Pharmacy [facility], [email or web address] * Preadmission Environment Home with Family * ADLs Independent * Equipment Cane Rolling Walker * Other Equipment CPM * List name and contact numbers for known caregivers / representatives who currently or will assist patient after discharge: Oly Zaidi () [phone] * Verbal permission to speak to the caregivers and representatives has been obtained from the patient. Yes * Community resources currently utilized None * Additional services required to return to the preadmission environment? Yes * Can the patient safely return to the preadmission environment? Yes * Has this patient been hospitalized within the prior 30 days at any hospital? No Patient Name: SOLOMON ZAIDI Page [id number] at 1401 All edits/amendments must be made on the electronic document DICTATION DATE: 05/01/201400 APRICOT PACKER: CHIDI 05/01/201400 RPT#: [id number] DC DATE: STATUS: ADM IN [facility] [address] [place] [address] END OF REPORT
[2020-05-01 14:22] LABS: ALBUMIN 3.4 g/dL (3.4-5.0); ANION GAP 6.5 mmol/L (8-16); BILIRUBIN - TOTAL 0.17 mg/dL (0.2-1.3); CALCIUM 8.2 mg/dL (8.5-10.1); CARBON DIOXIDE 30.7 mmol/L (21.0-32.0); CREATININE - SERUM 1.2 mg/dL (0.6-1.3); POTASSIUM - SERUM 4.2 mmol/L (3.5-5.1); PROTEIN - SERUM 6.8 g/dL (6.4-8.2)
[2020-05-01 14:29] LABS: BASOPHILS 0.3 % (0-2); EOSINOPHILS 0.1 % (0-7); HEMATOCRIT 41.7 % (42.0-54.0); HEMOGLOBIN 13.5 g/dL (13.5-17.5); IMMATURE GRANULOCYTES 0.4 % (0-5); LYMPHOCYTES 7.2 % (15-50); MCH 29.5 pg (26.0-34.0); MCHC 32.4 g/dL (31.0-37.0); MEAN PLATELET VOLUME 10.8 fL (7.4-10.4); MONOCYTES 2.8 % (2-11); NEUTROPHILS 89.2 % (40-80); PLATELET COUNT 168 10x3/uL (130-400); RBC 4.58 10x6/uL (4.20-6.10); RDW 14.2 % (11.5-14.5); WBC 10.8 10x3/uL (4.8-10.8)
--- NOTE | 2020-05-01 15:54 | NUR ---
IN ROOM. NO CO OF PAIN AT THIS TIME. PT LAID BACK IN BED FOR COMFORT. CL IN REACH. BED ALARM ON. WCTM
--- NOTE | 2020-05-01 19:00 | NUR ---
BEDSIDE REPORT RECEIVED WITH NIKHIL BAE IN ROOM. PATIENT CALM, ALERT, AND ORIENTED TO SELF AND SURROUNDINGS. AT BEDSIDE. PATIENT RESPONDS TO QUESTIONS APPROPRIATELY WITH SOME GARBLED SPEECH, BUT EASILY COMPREHENDABLE. PATIENT HAS IVF FLUIDS INFUSING PER ORDER TO PATENT 20 G IV TO THE LEFT HAND. PATIENT CURRENTLY ON CPM PER ORDER. PERIPHERAL PULSES ASSESSED, PALPABLE DORSALIS PEDAL PULSE. EXTREMETY WARM, PATIENT WIGGLES TOES UPON COMMAND, WITH LESS THAN THREE SECOND CAPILLARY REFILL. DENIES PAIN AND DISCOMFORT AT THIS TIME. CPOC.
--- NOTE | 2020-05-01 19:35 | NUR ---
BLADDER SCAN PERFORMED ON PATIENT WITH NIKHIL BAE. PATIENT HAS NOT VOIDED SINCE 1000. RECEIVED RESULTS OF 600-810 IN BLADDER. EXPLAINED TO PATIENT AND AT BEDSIDE THAT IN AND OUT CATH WOULD NEED TO BE PERFORMED TO STIMULATE URINATION/PROSTATE. VERBALIZED UNDERSTANDING.
--- NOTE | 2020-05-01 19:45 | NUR ---
IN AND OUT CATH PERFORMED USING STERILE TECHNIQUE. THIS NURSE CLAMPED IN AND OUT CATH BAG EVERY 100 ML TO AVOID BLADDER SPASMS. RECEIVED 850 IN YELLOW URINE. PATIENT EXPRESSED REFLEIF. EDUCATED PATIENT AND , MAURILIO, THAT IN AND OUT CATH SHOULD STIMULATE ELIMINATION PROCESS BUT COULD STILL TAKE A FEW HOURS BEFORE URGE RETURNED BUT THIS NURSE WILL MONITOR. URINAL AT BEDSIDE. ENCOURAGED TO PLACE INBETWEEN PATIENTS LEGS AND SIT HOB UP TO ENCOURAGE URGE. INSTRUCTED BOTH AND PATIENT THAT THIS NURSE WILL BE AVAILABLE TO HELP WITH ANY AND ALL NEEDS. EDUCATED ON USE OF CALL LIGHT. EXPLAINED PLAN OF CARE FOR SHIFT. BOTH RECEPTIVE TO TEACHING. DENIES QUESTIONS AT THIS TIME. CALL LIGHT CLOSE. CPOC.
--- NOTE | 2020-05-01 21:01 | NUR ---
ADMINISTERED HS MEDICATIONS. REMOVED PATIENT FROM CPM. ASSISTED WITH REPOSITIONG FOR COMFORT.SCANT AMOUNT OF BLOOD DRAINAGE TO ALISA WRAP. PATIENT COMPLAINS OF PAIN, 5/10 TO THE RIGHT KNEE. REQUESTS PAIN MEDICINE. ADMINSITERED PRN MEDICATION PER ORDER. AT BEDSIDE. EDUCATED AND PATIENT ON TURN, COUGH, DEEP BREATHING. PATIENT COUGHED AND TOOK DEEP BREATHS FOR THIS NURSE. USED INCENTIVE SPIROMETER 5 TIMES WHILE NURSE WAS IN ROOM. DENIES OTHER NEEDS AT THIS TIME. SCDS ON, BILATERALLY. BED ALARM ON. CALL LIGHT CLOSE. CPOC.
[2020-05-02] VITALS: BP 141/80
--- NOTE | 2020-05-02 | NUR ---
VITALS ASSESSED. PATIENT DENIES PAIN, STATES "MEDS WORKED". REMOVED TEDS BILATERALLY FOR ONE HOUR BREAK PER POLICY PROTOCAL.
--- NOTE | 2020-05-02 01:09 | NUR ---
ANSWERED PATIENT CALL LIGHT. PATIENT CONFUSED. TOOK OFF TELEMTREY AND ATTEMPTING TO PULL OUT IV. CALMED PATIENT. AT BEDSIDE. ASSISTED PATIENT WITH URINATING. VOIDED 550 CC OF LIGHT YELLOW URINE. PATIENT CALMED AFTER VOIDING. REAPPLIED TELEMTREY. REAPPLIED CONI HOSE BILATERALLY. IV REMAINS PATENT. ASSISTED PATIENT TO COMFORTABLE POSITION. ATTEMPTING TO REST WHEN EXITING THE ROOM. CALL LIGHT CLOSE. INSTRUCTED TO LET THIS NURSE KNOW OF ANY NEEDS. CPOC.
[2020-05-02 04:00] VITALS: BP 150/80
[2020-05-02 07:03] LABS: BASOPHILS 0.2 % (0-2); EOSINOPHILS 0.2 % (0-7); HEMATOCRIT 38.4 % (42.0-54.0); HEMOGLOBIN 12.1 g/dL (13.5-17.5); IMMATURE GRANULOCYTES 0.3 % (0-5); LYMPHOCYTES 11.1 % (15-50); MCH 28.6 pg (26.0-34.0); MCHC 31.5 g/dL (31.0-37.0); MCV 90.8 fL (80.0-100.0); MEAN PLATELET VOLUME 11.3 fL (7.4-10.4); MONOCYTES 10.4 % (2-11); NEUTROPHILS 77.8 % (40-80); PLATELET COUNT 171 10x3/uL (130-400); RBC 4.23 10x6/uL (4.20-6.10); WBC 8.7 10x3/uL (4.8-10.8)
[2020-05-02 07:25] VITALS: BP 126/74
[2020-05-02 07:26] LABS: ALBUMIN 3.1 g/dL (3.4-5.0); ANION GAP 7.5 mmol/L (8-16); BILIRUBIN - TOTAL 0.42 mg/dL (0.2-1.3); CALCIUM 7.9 mg/dL (8.5-10.1); CARBON DIOXIDE 29.6 mmol/L (21.0-32.0); CREATININE - SERUM 1.1 mg/dL (0.6-1.3); POTASSIUM - SERUM 4.1 mmol/L (3.5-5.1); PROTEIN - SERUM 6.2 g/dL (6.4-8.2)
--- NOTE | 2020-05-02 07:37 | NUR ---
MAURILIO IN ROOM. PT REQUESTED AND WILL RECIEVE COFFEE. WANTS THE CPM MACHINE OFF HIS LEG. STATED WE WOULD HAVE TO WAIT UNTIL 814 BEFORE WE CAN DO THAT. CL IN REACH. BED ALARM ON. WCTM.
--- NOTE | 2020-05-02 13:04 | NUR ---
PT INSISTING HE GET UP. PT AWARE IF HE GETS UP HE WILL FALL. REFUSES LUNCH. IN ROOM NOW. CHAIR ALARM ON. WCTM
[2020-05-02 13:10] VITALS: BP 105/70
[2020-05-02 13:35] VITALS: Ht 180.3 cm; Wt 125.2 kg
[2020-05-02 15:37] VITALS: BP 124/76
[2020-05-02 19:39] VITALS: BP 152/70
--- NOTE | 2020-05-02 21:40 | NUR ---
CALL FROM CORRIE RN WIRE STITCHER OPERATOR REPORTS PT HAD 18 BEAT RUN OF V-TACH REQUESTING CHART TO COMPAIR WITH PREVIOUS EKG, CHART SENT UPSTAIRS, INSTRUCTED THIS NURSE TO CALL PRIMARY ONCALL WHICH IS KENN
--- NOTE | 2020-05-02 22:05 | NUR ---
CALL TO KENN OTT CNP, INFORMED OF REPORTED 18 BEAT RUN OF V-TACH, ORDERES RECIEVED, EKG DONE AND RESULTS CALLED TO JUANITA MCCORMICK ANP VASC TECH FOR CARDIOLOGY, ORDERS RECIEVED TO TRANSFER TO [address] SUPPER VISOR NOTIFIED FOR ROOM
--- NOTE | 2020-05-02 23:30 | NUR ---
REPORT CALLED TO ZAFAR ON MED 2, PT AND INFORMEND OF TRANSFER, DR VENEGAS ANIMAL NUTRITION CONSULTANT FOR ORTHO NOTIFIED OF TRANSFER
--- NOTE | 2020-05-02 23:50 | NUR ---
[facility]
[2020-05-03] VITALS: BP 136/84
[2020-05-03 00:41] LABS: CALC OSMOLALITY 264 mosm/kg (275-300); CALCIUM 8.2 mg/dL (8.5-10.1); CARBON DIOXIDE 27.9 mmol/L (21.0-32.0); CHLORIDE - SERUM 99 mmol/L (98-107); CREATININE - SERUM 1.1 mg/dL (0.6-1.3); GLUCOSE 109 mg/dL (74-106); POTASSIUM - SERUM 4.3 mmol/L (3.5-5.1); SODIUM 131 mmol/L (136-145); UREA NITROGEN 14 mg/dL (7-18); eGFR NON AFRICAN AMERICAN 70 mL/min (90-120)
[2020-05-03 00:59] LABS: CKMB 1.7 U/L (0.0-3.6); CREATINE KINASE 336 UL (21-232); TROPONIN-I < 0.017 ng/mL (0.000-0.060)
--- NOTE | 2020-05-03 01:10 | NUR ---
PT ARRIVED TO FLOOR VIA STRECHER WITH AT BEDSIDE. 20G IV STARTED IN PT LOWER FA. DRIP AND BOLUS GIVEN BY NIKHIL BETANCUR. PT 83-TELE. PLACED PT ON 2L FOR 91%. PT BEDFAST AND USES URINAL. BED LOW CALL LIGHT WITHIN REACH. WILL CONTINUE TO MONITOR.
--- NOTE | 2020-05-03 02:30 | NUR ---
PT RIPS IV OUT ON ACCIDENT. 22G IV PLACED DRIP STARTED BACK. WILL CONTINUE TO MONITOR.
[2020-05-03 04:00] VITALS: BP 131/83
--- NOTE | 2020-05-03 04:35 | NUR ---
PT PULLS OUT 22G IV. DRIP STOPPED. 20G IV PLACED IN LAC. DRIP RESTARTED. WILL CONTINUE TO MONITOR.
[2020-05-03 07:13] LABS: BASOPHILS 0.6 % (0-2); EOSINOPHILS 3.6 % (0-7); HEMOGLOBIN 11.6 g/dL (13.5-17.5); IMMATURE GRANULOCYTES 0.2 % (0-5); LYMPHOCYTES 14.5 % (15-50); MCH 28.6 pg (26.0-34.0); MCHC 32.2 g/dL (31.0-37.0); MCV 88.9 fL (80.0-100.0); MONOCYTES 12.9 % (2-11); NEUTROPHILS 68.2 % (40-80); PLATELET COUNT 162 10x3/uL (130-400); RBC 4.05 10x6/uL (4.20-6.10); WBC 8.1 10x3/uL (4.8-10.8)
[2020-05-03 07:19] LABS: APTT 35.1 SECONDS (22.8-39.4); INR 1.1 (0.85-1.17); PROTIME 14.2 SECONDS (11.6-15.0)
[2020-05-03 07:33] LABS: ALKALINE PHOSPHATASE 49 U/L (30-120); ALT (SGPT) 18 U/L (10-68); BILIRUBIN - TOTAL 0.55 mg/dL (0.2-1.3); CALC OSMOLALITY 265 mosm/kg (275-300); CALCIUM 8.1 mg/dL (8.5-10.1); CARBON DIOXIDE 29.6 mmol/L (21.0-32.0); CHLORIDE - SERUM 100 mmol/L (98-107); CKMB 2.1 U/L (0.0-3.6); CREATINE KINASE 303 UL (21-232); GLUCOSE 100 mg/dL (74-106); POTASSIUM - SERUM 3.9 mmol/L (3.5-5.1); PROTEIN - SERUM 6.3 g/dL (6.4-8.2); SODIUM 133 mmol/L (136-145); UREA NITROGEN 13 mg/dL (7-18); eGFR NON AFRICAN AMERICAN 79 mL/min (90-120)
[2020-05-03 07:34] LABS: TROPONIN-I < 0.017 ng/mL (0.000-0.060)
--- NOTE | 2020-05-03 10:30 | NUR ---
IV RESTARTED TO RIGHT WRIST WITH 22 GAUGE CATH X 3 STICKS. FLUSHED WITH NS. LINE IS PATENT.
[2020-05-03 10:52] VITALS: BP 138/83
[2020-05-03 11:44] LABS: CKMB 2.2 U/L (0.0-3.6); CREATINE KINASE 296 UL (21-232); TROPONIN-I < 0.017 ng/mL (0.000-0.060)
[2020-05-03 11:52] LABS: ALT (SGPT) 18 U/L (10-68); CALC OSMOLALITY 270 mosm/kg (275-300); CARBON DIOXIDE 31.2 mmol/L (21.0-32.0); CHLORIDE - SERUM 101 mmol/L (98-107); CHOLESTEROL, TOTAL 165 mg/dL (0-200); GLUCOSE 117 mg/dL (74-106); HDL CHOLESTEROL 56 mg/dL (32-96); LDL CHOLESTEROL 95 mg/dL (0-100); LDL-HDL RATIO 1.7 ratio (1.5-3.5); MAGNESIUM - SERUM 1.8 mg/dL (1.8-2.4); POTASSIUM - SERUM 3.7 mmol/L (3.5-5.1); SODIUM 135 mmol/L (136-145); THYROID STIMULATING HORMONE 1.03 uIU/mL (0.36-3.74); TRIGLYCERIDE 72 mg/dL (30-200); UREA NITROGEN 13 mg/dL (7-18); eGFR NON AFRICAN AMERICAN 79 mL/min (90-120)
--- NOTE | 2020-05-03 12:00 | NUR ---
CONSENTS SIGNED BY FOR [facility] IN AM.
--- NOTE | 2020-05-03 13:14 | OP ---
PATIENT NAME: SOLOMON SHAIKH MEDICAL RECORD: [id number] :50 LOCATION:D. D.2114 ADMISSION DATE:05/01/20 SURGEON: FATIMAH MARIANO MD DATE OF OPERATION: 05/01/2020 PREOPERATIVE DIAGNOSIS: Degenerative arthritis, right knee. POSTOPERATIVE DIAGNOSIS: Degenerative arthritis, right knee. PROCEDURE: Right total knee arthroplasty. SURGEON: Fatimah Mariano MD IMPORT AND EXPORT CLERK: RENE De Dios ANESTHESIA: General. INTRAOPERATIVE COMPLICATIONS: None. 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 The patient also had chondromalacia of the medial compartment. IMPLANTS USED: Tyshawn triathlon total knee arthroplasty size 5 tibial component, size 5 cruciate retaining femoral component, size 33 symmetric patella 9 mm, and size 5 x 9 tibial bearing insert X3 press fit. OPERATIVE SUMMARY IN DETAIL: After obtaining the appropriate preoperative orthopedic surgery consent as well as anesthetic consultation, evaluation and clearance, the patient was brought to the operating room and placed on the operating table in supine position. After adequate general laryngeal mask airway was administered, tourniquet was placed on the proximal aspect of the patient's right lower extremity. Right lower extremity was prepped and draped in routine sterile fashion. At this point, the appropriate timeout was taken and agreed upon by all given the patient identifiers. The leg was elevated and exsanguinated, tourniquet inflated to 350 mmHg. Midline incision was taken down for paramedian arthrotomy. The paramedian arthrotomy was performed. Patella was everted and the distal femur was exposed. Soft tissue excision was done in the usual fashion. An intramedullary guide hole was created for distal intramedullary guided cut. Distal femoral cut was made. Attention was turned to the proximal tibia. With complete exposure of the proximal tibia and further resection of residual meniscus, intramedullary guide hole was created here as well. Proximal tibia was cut and appropriate measurements were taken and then distal femoral chamfer cuts were done as well. Having completed distal femoral chamfer cuts, the appropriate trials were placed corresponding to the above final mentioned implants. After final placement and adjustments, the knee was taken through range of motion and found to be stable in all planes. Having completed this, final distal femoral preparations were completed followed by proximal tibial preparations. Having completed this, the very arthritic articular surface of the patella was excised and prepared for press fit implantation. The knee cavity was irrigated and pulsatile lavaged to remove all debris and then components were press fit into place. Having completed the press fit, the knee was taken through range of motion and found to be stable in all planes. At this point, a gram of vancomycin and a gram of tobramycin were placed intra-articular. The paramedian arthrotomy and skin were closed by Louis OPERATIVE REPORT [id number] SOLOMON SHAIKH, FA with #2 Ethibond followed by #1 Vicryl, 2-0 Vicryl and skin magdi. Sterile dressings were applied. Tourniquet was deflated. The patient was awakened and taken to recovery room in stable condition. All final needle and sponge counts were correct. TRANSINT:[id number] Voice Confirmation ID: [id number] DOCUMENT ID: [id number] MONTSERRAT JOSEPH, FATIMAH GREER at 1314 CC: [id number] DICTATION DATE: 05/03/20725 AVIATION ORDNANCE OFFICER: 05/03/20 1230 ADM IN [place] [id number] [place] [address]
[2020-05-03 14:54] VITALS: BP 130/72
--- NOTE | 2020-05-03 19:31 | NUR ---
RECEIVED BEDSIDE REPORT. ROUNDING COMPLETE. PATIENT IS ALERT AND PLEASANTLY CONFUSED. RESPIRATIONS ARE EVEN AND UNLABORED. PATIENT USING CPM MACHINE. REQUESTED ICE PACK FOR PATIENT KNEE. NEEDS MET. CALL LIGHT WITHIN REACH. WILL CPOC.
[2020-05-03 20:00] VITALS: BP 135/49
[2020-05-04] VITALS: BP 115/73
[2020-05-04 04:00] VITALS: BP 125/78
--- NOTE | 2020-05-04 05:01 | NUR ---
CPM MACHINE STARTED.
[2020-05-04 06:52] LABS: BASOPHILS 0.4 % (0-2); EOSINOPHILS 4.5 % (0-7); HEMATOCRIT 35.8 % (42.0-54.0); HEMOGLOBIN 11.8 g/dL (13.5-17.5); IMMATURE GRANULOCYTES 0.7 % (0-5); LYMPHOCYTES 13.3 % (15-50); MCH 29.4 pg (26.0-34.0); MCV 89.1 fL (80.0-100.0); MEAN PLATELET VOLUME 10.9 fL (7.4-10.4); MONOCYTES 12.7 % (2-11); NEUTROPHILS 68.4 % (40-80); PLATELET COUNT 172 10x3/uL (130-400); RBC 4.02 10x6/uL (4.20-6.10); WBC 8.1 10x3/uL (4.8-10.8)
[2020-05-04 07:19] LABS: ALBUMIN 2.8 g/dL (3.4-5.0); BILIRUBIN - TOTAL 0.75 mg/dL (0.2-1.3); CALCIUM 8.5 mg/dL (8.5-10.1); CARBON DIOXIDE 30.8 mmol/L (21.0-32.0); CREATININE - SERUM 1.1 mg/dL (0.6-1.3); POTASSIUM - SERUM 3.8 mmol/L (3.5-5.1); PROTEIN - SERUM 6.4 g/dL (6.4-8.2)
[2020-05-04 08:10] VITALS: BP 140/82
--- NOTE | 2020-05-04 13:23 | MORECARE ---
CASE MANAGEMENT DISCHARGE SUMMARY PATIENT: SOLOMON ZAIDI UNIT: [id number] ADM DATE: 05/01/20 AGE: 69 : 50 SEX: M ROOM/BED: D.2114 AUTHOR: JACKIE,DOC PHYSICIAN: REFERRING PHYSICIAN: FATIMAH MARIANO MD DATE OF SERVICE: 05/04/20 Discharge Plan Patient Name: SOLOMON ZAIDI Facility: [facility]:[place] : 1950 Planned Disposition: Anticipated Discharge Date: 05/04/20 Discharge Date: Expected LOS: 3 Initial Reviewer: [email or web address] Initial Review Date: 05/01/2020 Generated: 05/04/20 2:22 pm Comments DCP- Discharge Planning Updated by [id number]: Pearl Grubbs on 05/01/20 12:[address] CM met with patient and , Oly aZidi ([phone]) regarding dc plans. Patient is drowsy and request that his in interview. 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 PCP: Dr. York. Pharmacy: [facility]. DME: walker, cane. A CPM was delivered to the home, as well TONGUE CARRIER. CM discussed HHS, OP Therapy, Rehab, SNF. PT has not worked with the patient as yet, so CM will re-visit tomorrow in order to determine DC needs. CM left a copy of HH agencies and OP Therapy with the patient's . CM will follow and assist PRN with DC needs. DCPIA - Discharge Planning Initial Assessment Updated by [id number]: Pearl Grubbs on 05/01/20 1:58 pm * Is the patient Alert and Oriented? Yes * How many steps to enter\exit or inside your home? 3 wide w/r * PCP Dr. York * Pharmacy [facility], [address] * Preadmission Environment Home with Family * ADLs Independent * Equipment Cane Rolling Walker * Other Equipment CPM * List name and contact numbers for known caregivers / representatives who currently or will assist patient after discharge: Oly Zaidi () [phone] * Verbal permission to speak to the caregivers and representatives has been obtained from the patient. Yes * Community resources currently utilized None * Additional services required to return to the preadmission environment? Yes * Can the patient safely return to the preadmission environment? Yes * Has this patient been hospitalized within the prior 30 days at any hospital? No External Providers External Provider: [facility] Next Contact Date: Service Request Date: Service Type: Resolution: Reviewer: Comments: Coverage Notice Reviewer: [id number] - Pearl Grubbs Notice Issued Date-Time: 05/02/2020 14:57 Notice Type: Patient Choice Letter Notice Delivered To: Patient Relationship to Patient: Self Perforator Loader Name: Oly Zaidi Delivery Method: HAND - Hand Delivered Fifi Days: Prior Verbal Notification: Recipient Understood Notice: Yes Recipient Signature: Yes Med Rec Note Co-signed by Attending: Coverage Notice Comment: MANAGER TRAINING OP Therapy Last DP export: 05/01/20 1:01 p Patient Name: SOLOMON ZAIDI Page [id number] at 1323 All edits/amendments must be made on the electronic document DICTATION DATE: 05/04/20 1322 IN SERVICE EDUCATOR: CHIDI 05/04/20 1322 RPT#: [id number] DC DATE: STATUS: ADM IN [facility] [address] [place] [address] END OF REPORT
--- NOTE | 2020-05-04 13:32 | MORECARE ---
CASE MANAGEMENT DISCHARGE SUMMARY PATIENT: SOLOMON ZAIDI UNIT: [id number] ADM DATE: 05/01/20 AGE: 69 : 50 SEX: M ROOM/BED: D.2114 AUTHOR: JACKIE,DOC PHYSICIAN: REFERRING PHYSICIAN: FATIMAH MARIANO MD DATE OF SERVICE: 05/04/20 Discharge Plan Patient Name: SOLOMON ZAIDI Facility: [facility]:[place] : 1950 Planned Disposition: Anticipated Discharge Date: 05/04/20 Discharge Date: Expected LOS: 3 Initial Reviewer: [email or web address] Initial Review Date: 05/01/2020 Generated: 05/04/20 2:31 pm Comments DCP- Discharge Planning Updated by [email or web address]: Magaly Goldstein on 05/04/20 12:[address] CM noted PT notes, recommending rehab. I spoke with patient, he is confused and unable to choose a rehab facility. I spoke with patient's on the phone and explained inpatient rehab vs SNF. She would like a referral to [facility]. I spoke with Trisha with [facility] and referral faxed. CM will continue to follow and assist with discharge planning/needs. DCP- Discharge Planning Updated by [email or web address]: Pearl Grubbs on 05/01/20 12:[address] CM met with patient and , Oly Zaidi ([phone]) regarding dc plans. Patient is drowsy and request that his in interview. 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 PCP: Dr. York. Pharmacy: [facility]. DME: bran das. A CPM was delivered to the home, as well COMMISSARY PRODUCTION SUPERVISOR. CM discussed HHS, OP Therapy, Rehab, SNF. PT has not worked with the patient as yet, so CM will re-visit tomorrow in order to determine DC needs. CM left a copy of HH agencies and OP Therapy with the patient's . CM will follow and assist PRN with DC needs. DCPIA - Discharge Planning Initial Assessment Updated by [email or web address]: Pearl Grubbs on 05/01/20 1:58 pm * Is the patient Alert and Oriented? Yes * How many steps to enter\exit or inside your home? 3 wide w/r * PCP Dr. York * Pharmacy [facility] * Preadmission Environment Home with Family * ADLs Independent * Equipment Cane Rolling Walker * Other Equipment CPM * List name and contact numbers for known caregivers / representatives who currently or will assist patient after discharge: Oly Zaidi () [phone] * Verbal permission to speak to the caregivers and representatives has been obtained from the patient. Yes * Community resources currently utilized None * Additional services required to return to the preadmission environment? Yes * Can the patient safely return to the preadmission environment? Yes * Has this patient been hospitalized within the prior 30 days at any hospital? No Coverage Notice Reviewer: [id number] Stoney Grubbs Notice Issued Date-Time: 05/02/2020 14:57 Notice Type: Patient Choice Letter Notice Delivered To: Patient Relationship to Patient: Self Director Public Policy Name: Oly Zaidi Delivery Method: HAND - Hand Delivered Fifi Days: Prior Verbal Notification: Recipient Understood Notice: Yes Recipient Signature: Yes Med Rec Note Co-signed by Attending: Coverage Notice Comment: NEWS CLERK OP Therapy Reviewer: [email or web address] Stoney Goldstein Notice Issued Date-Time: 05/04/2020 13:25 Notice Type: Patient Choice Letter Notice Delivered To: Family Member Relationship to Patient: Spouse Director Public Policy Name: Oly Zaidi Delivery Method: PHONE - Phone Fifi Days: Prior Verbal Notification: Recipient Understood Notice: Yes Recipient Signature: Med Rec Note Co-signed by Attending: Coverage Notice Comment: [facility] Last DP export: 05/04/20 12:23 p Patient Name: SOLOMON ZAIDI Page [phone] at 1332 All edits/amendments must be made on the electronic document DICTATION DATE: 05/04/20 1331 WHITEWATER RAFTING GUIDE: DM 05/04/20 1331 RPT#: [id number] DC DATE: STATUS: ADM IN [facility] [address] [place] [address] END OF REPORT
--- NOTE | 2020-05-04 15:08 | NUR ---
PATIENT DISCHARGED FROM DR RIVERA CARE WITH ORDERS OF PLAVIX 75 MG FOR 1 MONTH WITH 5 REFILLS, LASIX 40 MG DAILY, CORDORONE 200 MG BID AND RETURN TO SEE DR RIVERA IN 4 WEEKS IN THE CLINIC. CARE TURNED OVER TO DR MARIANO.
[2020-05-04 15:58] VITALS: BP 155/91
--- NOTE | 2020-05-04 17:09 | NUR ---
AIR SLOWLY RELEASED FROM BAND TO RIGHT WRIST AND TAKEN OFF WITH NO BLEEDING NOTED AT 17:10, BANDAID APPLIED.
[2020-05-04 20:21] VITALS: BP 101/59
--- NOTE | 2020-05-05 04:33 | NUR ---
CPM MACHINE INITATED.
[2020-05-05 04:42] VITALS: BP 116/58
[2020-05-05 07:14] LABS: ALBUMIN 2.7 g/dL (3.4-5.0); ANION GAP 10.3 mmol/L (8-16); BILIRUBIN - TOTAL 0.87 mg/dL (0.2-1.3); CALCIUM 8.3 mg/dL (8.5-10.1); CARBON DIOXIDE 29.4 mmol/L (21.0-32.0); CREATININE - SERUM 1.1 mg/dL (0.6-1.3); POTASSIUM - SERUM 3.7 mmol/L (3.5-5.1); PROTEIN - SERUM 5.9 g/dL (6.4-8.2)
--- NOTE | 2020-05-05 09:08 | OP ---
PATIENT NAME: SOLOMON SHAIKH MEDICAL RECORD: [id number] :50 LOCATION:D.M2 D.2114 ADMISSION DATE:05/01/20 SURGEON: DIANA LYMAN MD DATE OF OPERATION: 05/04/2020 PROCEDURE: Left heart catheterization, selective coronary angiography, right radial approach. CATHETERS: Radial sheath, Pickens catheter. The procedure was well tolerated. The patient returned to bell. Sheath removed. TR band was placed. FINDINGS: Left ventriculography in 30-degree AWAN view; globally hypokinetic with reduced EF, estimated at 20%. CORONARY ANATOMY: LEFT MAIN: Left main is free of disease. LAD: Has luminal irregularities with no flow obstructive stenosis. CIRCUMFLEX: Totally occluded, fills via right to left collaterals. RIGHT CORONARY ARTERY: Right coronary artery has severe complex 80% stenosis in its mid portion. This does give rise to circumflex collaterals as well. PLAN: Intervention momentarily. DESCRIPTION OF PROCEDURE: Using indwelling radial sheath, a hockey-stick guiding catheter provided fair guiding catheter support followed by a 300 cm BMW was placed across the tightly occluded 80% right down this portion of vessel. Stent deployed was a 4.0 x 18 mm Integrity nondrug-eluting stent up to 14 atmospheres for 45 seconds. Final angiography shows excellent resolution complex 80% stenosis, no significant residual. This vessel supplies the circumflex as well, hopefully, this will have improved LV function in the interim given mild volume overload we will start loop diuretic as well as Dobutrex for inotropic support. TRANSINT:[id number] Voice Confirmation ID: [id number] DOCUMENT ID: [id number] DIANA LYMAN MD at 0908 CC: [id number] DICTATION DATE: 05/04/20 1128 ELECTRICAL CONTROLS TECHNICIAN: 05/04/20 191 ADM IN [facility] [address] [place] [address]
[2020-05-05 09:52] VITALS: BP 119/69
[2020-05-05 10:38] LABS: BASOPHILS 0.3 % (0-2); EOSINOPHILS 4.9 % (0-7); HEMOGLOBIN 11.7 g/dL (13.5-17.5); IMMATURE GRANULOCYTES 0.8 % (0-5); LYMPHOCYTES 12.6 % (15-50); MCHC 32.5 g/dL (31.0-37.0); MCV 89.1 fL (80.0-100.0); MONOCYTES 12.2 % (2-11); NEUTROPHILS 69.2 % (40-80); PLATELET COUNT 196 10x3/uL (130-400); RBC 4.04 10x6/uL (4.20-6.10); WBC 8.7 10x3/uL (4.8-10.8)
--- NOTE | 2020-05-05 13:53 | NUR ---
Nutrition Follow-up: Eating well. Ate 100% of breakfast this AM. Diet: Regular PO intake: 97% avg x 8 meals Wt: 276# (05/02) Labs noted: Ca 8.3, Alb 2.7 Meds noted: Lasix, Protonix, electrolyte protocol -RD following.
[2020-05-05 14:28] VITALS: BP 118/58
--- NOTE | 2020-05-05 15:48 | NUR ---
RIGHT KNEE DRESSING CHANGE. INCISION CLEAN AND DRY. NO DRAINAGE VISIBLE. AQUACEL AG DRESSING PLACED OVER INCISION.
--- NOTE | 2020-05-05 18:47 | NUR ---
PT REFUSED TO WEAR CPM. NURSES X 3 EDUCATED PT ON IMPORTANCE OF DEVICE PT STATED "IT HURT TOO BAD NO." WILL NOTIFY .
--- NOTE | 2020-05-05 20:07 | NUR ---
PT REQUESTING CPM MACHINE. CPM MACHINE APPLIED AND INITIATED.
[2020-05-05 21:41] VITALS: BP 132/73
--- NOTE | 2020-05-05 22:22 | NUR ---
PT REQUESTING OFF CPM, EDUCATED. STILL REQUESTING. PROVIDED.
[2020-05-06 06:03] LABS: BASOPHILS 0.3 % (0-2); EOSINOPHILS 1.8 % (0-7); HEMATOCRIT 34.4 % (42.0-54.0); HEMOGLOBIN 11.3 g/dL (13.5-17.5); IMMATURE GRANULOCYTES 0.9 % (0-5); LYMPHOCYTES 10.5 % (15-50); MCHC 32.8 g/dL (31.0-37.0); MCV 88.2 fL (80.0-100.0); MEAN PLATELET VOLUME 10.7 fL (7.4-10.4); MONOCYTES 13.7 % (2-11); NEUTROPHILS 72.8 % (40-80); PLATELET COUNT 223 10x3/uL (130-400); WBC 9.9 10x3/uL (4.8-10.8)
[2020-05-06 06:44] LABS: ALBUMIN 2.7 g/dL (3.4-5.0); ANION GAP 10.8 mmol/L (8-16); CALCIUM 8.4 mg/dL (8.5-10.1); CARBON DIOXIDE 29.6 mmol/L (21.0-32.0); POTASSIUM - SERUM 3.4 mmol/L (3.5-5.1); PROTEIN - SERUM 6.7 g/dL (6.4-8.2)
[2020-05-06 06:45] LABS: CREATININE - SERUM 1.4 mg/dL (0.6-1.3)
[2020-05-06 08:00] VITALS: BP 115/67
--- NOTE | 2020-05-06 09:20 | NUR ---
DOBUTAMINE DRIP STOPPED PER ORDERS. WILL CTM.
[2020-05-06 10:30] VITALS: BP 112/67
[2020-05-06 15:00] VITALS: BP 120/70
[2020-05-06 21:42] VITALS: BP 130/63
[2020-05-07 01:49] VITALS: BP 100/48
[2020-05-07 05:39] VITALS: BP 115/57
[2020-05-07 07:05] LABS: BASOPHILS 0.4 % (0-2); EOSINOPHILS 7.5 % (0-7); HEMOGLOBIN 12.2 g/dL (13.5-17.5); IMMATURE GRANULOCYTES 1.8 % (0-5); LYMPHOCYTES 13.6 % (15-50); MCH 29.4 pg (26.0-34.0); MCV 89.2 fL (80.0-100.0); MEAN PLATELET VOLUME 10.5 fL (7.4-10.4); MONOCYTES 13.8 % (2-11); NEUTROPHILS 62.9 % (40-80); PLATELET COUNT 226 10x3/uL (130-400); RBC 4.15 10x6/uL (4.20-6.10); RDW 13.7 % (11.5-14.5); WBC 9.1 10x3/uL (4.8-10.8)
[2020-05-07 07:23] LABS: ALBUMIN 2.8 g/dL (3.4-5.0); ANION GAP 12.2 mmol/L (8-16); BILIRUBIN - TOTAL 1.09 mg/dL (0.2-1.3); CALCIUM 8.7 mg/dL (8.5-10.1); CARBON DIOXIDE 29.1 mmol/L (21.0-32.0); CREATININE - SERUM 1.2 mg/dL (0.6-1.3); POTASSIUM - SERUM 3.3 mmol/L (3.5-5.1)
[2020-05-07 08:18] VITALS: BP 117/69
[2020-05-07 17:41] VITALS: BP 140/85
--- NOTE | 2020-05-07 17:45 | NUR ---
CPM APPLIED. WILL CTM.
[2020-05-07 21:30] VITALS: BP 147/75
[2020-05-08 04:35] VITALS: BP 114/74
[2020-05-08 07:33] LABS: BASOPHILS 0.6 % (0-2); EOSINOPHILS 9.3 % (0-7); HEMATOCRIT 36.6 % (42.0-54.0); HEMOGLOBIN 11.9 g/dL (13.5-17.5); IMMATURE GRANULOCYTES 1.9 % (0-5); LYMPHOCYTES 13.7 % (15-50); MCHC 32.5 g/dL (31.0-37.0); MCV 89.3 fL (80.0-100.0); MEAN PLATELET VOLUME 10.2 fL (7.4-10.4); MONOCYTES 12.4 % (2-11); NEUTROPHILS 62.1 % (40-80); PLATELET COUNT 263 10x3/uL (130-400); RDW 13.4 % (11.5-14.5)
[2020-05-08 07:47] LABS: ALBUMIN 2.8 g/dL (3.4-5.0); ANION GAP 8.7 mmol/L (8-16); BILIRUBIN - TOTAL 0.85 mg/dL (0.2-1.3); CARBON DIOXIDE 31.8 mmol/L (21.0-32.0); CREATININE - SERUM 1.3 mg/dL (0.6-1.3); POTASSIUM - SERUM 3.5 mmol/L (3.5-5.1)
--- NOTE | 2020-05-08 07:53 | NUR ---
CPM REMOVED AFTER 3 HOURS OF THERAPY. AM MEDICATIONS ADMININSTERED. PT APPEARS MORE ORIENTED THAN NORMAL. AT BEDSIDE. FALL PRECAUTIONS IN PLACE. WILL CTM.
[2020-05-08 09:39] VITALS: BP 130/66
--- NOTE | 2020-05-08 09:39 | MORECARE ---
CASE MANAGEMENT DISCHARGE SUMMARY PATIENT: SOLOMON ZAIDI UNIT: [id number] ADM DATE: 05/01/20 AGE: 69 : 50 SEX: M ROOM/BED: D.2114 AUTHOR: JACKIE,DOC PHYSICIAN: REFERRING PHYSICIAN: FATIMAH MARIANO MD DATE OF SERVICE: 05/08/20 Discharge Plan Patient Name: SOLOMON ZAIDI Facility: [facility]:[place] : 1950 Planned Disposition: [facility] Facility Anticipated Discharge Date: 05/04/20 Discharge Date: Expected LOS: 3 Initial Reviewer: [email or web address] Initial Review Date: 05/01/2020 Generated: 05/08/20 10:38 am Comments DCP- Discharge Planning Updated by [id number]: Pearl Grubbs on 05/08/20 8:[address] CM contacted Claud[facility], who states she will have a male bed available 05/09. DCP- Discharge Planning Updated by [id number]: Magaly Goldstein on 05/04/20 12:[address] CM noted PT notes, recommending rehab. I spoke with patient, he is confused and unable to choose a rehab facility. I spoke with patient's on the phone and explained inpatient rehab vs SNF. She would like a referral to [facility]. I spoke with Trisha with [facility] and referral faxed. CM will continue to follow and assist with discharge planning/needs. DCP- Discharge Planning Updated by [id number]: Pearl Grubbs on 05/01/20 12:[address] CM met with patient and , Oly Zaidi ([phone]) regarding dc plans. Patient is drowsy and request that his in interview. 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 PCP: Dr. York. Pharmacy: [facility]. DME: bran das. A CPM was delivered to the home, as well TRIM SETTER. CM discussed HHS, OP Therapy, Rehab, SNF. PT has not worked with the patient as yet, so CM will re-visit tomorrow in order to determine DC needs. CM left a copy of HH agencies and OP Therapy with the patient's . CM will follow and assist PRN with DC needs. DCPIA - Discharge Planning Initial Assessment Updated by [id number]: Pearl Grubbs on 05/01/20 1:58 pm * Is the patient Alert and Oriented? Yes * How many steps to enter\exit or inside your home? 3 wide w/r * PCP Dr. York * Pharmacy [facility] * Preadmission Environment Home with Family * ADLs Independent * Equipment Cane Rolling Walker * Other Equipment CPM * List name and contact numbers for known caregivers / representatives who currently or will assist patient after discharge: Oly Zaidi () [phone] * Verbal permission to speak to the caregivers and representatives has been obtained from the patient. Yes * Community resources currently utilized None * Additional services required to return to the preadmission environment? Yes * Can the patient safely return to the preadmission environment? Yes * Has this patient been hospitalized within the prior 30 days at any hospital? No Coverage Notice Reviewer: [id number] - Pearlniko Grubbs Notice Issued Date-Time: 05/02/2020 14:57 Notice Type: Patient Choice Letter Notice Delivered To: Patient Relationship to Patient: Self Inside Solar Sales Consultant Name: Oly Zaidi Delivery Method: HAND - Hand Delivered Fifi Days: Prior Verbal Notification: Recipient Understood Notice: Yes Recipient Signature: Yes Med Rec Note Co-signed by Attending: Coverage Notice Comment: MANAGER DIGITAL OP Therapy Reviewer: [id number] - Magaly Goldstein Notice Issued Date-Time: 05/04/2020 13:25 Notice Type: Patient Choice Letter Notice Delivered To: Family Member Relationship to Patient: Spouse Inside Solar Sales Consultant Name: Oly Zaidi Delivery Method: PHONE - Phone Fifi Days: Prior Verbal Notification: Recipient Understood Notice: Yes Recipient Signature: Med Rec Note Co-signed by Attending: Coverage Notice Comment: [facility] Last DP export: 05/04/20 12:32 p Patient Name: SOLOMON ZAIDI Page [id number] at 0939 All edits/amendments must be made on the electronic document DICTATION DATE: 05/08/20938 DBA DEVELOPER: CHIDI 05/08/20938 RPT#: [id number] DC DATE: STATUS: ADM IN [facility] [address] [place] [address] END OF REPORT
[2020-05-08 12:00] VITALS: BP 124/72
[2020-05-08] MEDS ORDERED: HYDROCODON-ACE1 EA10 PO (12:34)
[2020-05-08] MEDS ORDERED: ELIQUIS2.5 MG PO (12:45)
--- NOTE | 2020-05-08 14:16 | MORECARE ---
CASE MANAGEMENT DISCHARGE SUMMARY PATIENT: SOLOMON ZAIDI UNIT: [id number] ADM DATE: 05/01/20 AGE: 69 : 50 SEX: M ROOM/BED: D.5044 AUTHOR: JACKIE,DOC PHYSICIAN: REFERRING PHYSICIAN: FATIMAH MARIANO MD DATE OF SERVICE: 05/08/20 Discharge Plan Patient Name: SOLOMON ZAIDI Facility: [facility]:[place] : 1950 Planned Disposition: Snf Facility Anticipated Discharge Date: 05/04/20 Discharge Date: Expected LOS: 3 Initial Reviewer: [email or web address] Initial Review Date: 05/01/2020 Generated: 05/08/20 3:15 pm Comments DCP- Discharge Planning Updated by [id number]: Pearl Grubbs on 05/08/20 1:[address] 1404: CM has contacted Mrs. Zaidi, in regards to bringing the patient's CPM with her when the patient is discharged. She verifies that she will take it to the nursing facility when she signs paperwork for patient's admission. Mrs. Zaidi is aware that the patient will be in quarantine for the first 14 days upon arrival to [facility]. CM contacted Claudia [facility], who states she will have a male bed available 05/09. DCP- Discharge Planning Updated by [id number]: Magaly Goldstein on 05/04/20 12:[address] CM noted PT notes, recommending rehab. I spoke with patient, he is confused and unable to choose a rehab facility. I spoke with patient's on the phone and explained inpatient rehab vs SNF. She would like a referral to [facility]. I spoke with Trisha with [facility] and referral faxed. CM will continue to follow and assist with discharge planning/needs. DCP- Discharge Planning Updated by [id number]: Pearl Grubbs on 05/01/20 12:[address] CM met with patient and , Oly Zaidi ([phone]) regarding dc plans. Patient is drowsy and request that his in interview. 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 PCP: Dr. York. Pharmacy: [facility]. DME: walker, cane. A CPM was delivered to the home, as well MANUFACTURING DESIGN ENGINEER. CM discussed HHS, OP Therapy, Rehab, SNF. PT has not worked with the patient as yet, so CM will re-visit tomorrow in order to determine DC needs. CM left a copy of HH agencies and OP Therapy with the patient's . CM will follow and assist PRN with DC needs. DCPIA - Discharge Planning Initial Assessment Updated by [id number]: Pearl Grubbs on 05/01/20 1:58 pm * Is the patient Alert and Oriented? Yes * How many steps to enter\exit or inside your home? 3 wide w/r * PCP Dr. York * Pharmacy [facility] * Preadmission Environment Home with Family * ADLs Independent * Equipment Cane Rolling Walker * Other Equipment CPM * List name and contact numbers for known caregivers / representatives who currently or will assist patient after discharge: Oly Zaidi () [phone] * Verbal permission to speak to the caregivers and representatives has been obtained from the patient. Yes * Community resources currently utilized None * Additional services required to return to the preadmission environment? Yes * Can the patient safely return to the preadmission environment? Yes * Has this patient been hospitalized within the prior 30 days at any hospital? No Coverage Notice Reviewer: [id number] - Pearl Grubbs Notice Issued Date-Time: 05/02/2020 14:57 Notice Type: Patient Choice Letter Notice Delivered To: Patient Relationship to Patient: Self Electronic Maintenance Supervisor Name: Oly Zaidi Delivery Method: HAND - Hand Delivered Fifi Days: Prior Verbal Notification: Recipient Understood Notice: Yes Recipient Signature: Yes Med Rec Note Co-signed by Attending: Coverage Notice Comment: CREDIT ADMINISTRATION MANAGER OP Therapy Reviewer: [id number] - Magaly Goldstein Notice Issued Date-Time: 05/04/2020 13:25 Notice Type: Patient Choice Letter Notice Delivered To: Family Member Relationship to Patient: Spouse Electronic Maintenance Supervisor Name: Oly Zaidi Delivery Method: PHONE - Phone Fifi Days: Prior Verbal Notification: Recipient Understood Notice: Yes Recipient Signature: Med Rec Note Co-signed by Attending: Coverage Notice Comment: [facility] Last DP export: 05/08/20 8:39 a Patient Name: SOLOMON ZAIDI Page [phone] at 1416 All edits/amendments must be made on the electronic document DICTATION DATE: 05/08/201414 CHICKEN AND FISH CLEANER: CHIDI 05/08/201414 RPT#: [id number] DC DATE: STATUS: ADM IN [facility] [address] [place] [address] END OF REPORT
--- NOTE | 2020-05-08 15:11 | NUR ---
OT NOTE: PT LIEING IN BED..INCREASED VERBALIZATION TODAY, HOWEVER, ALSO INCREASED CONFUSION/DISORIENTATION. AT BEDSIDE..STEPPED OUT FOR TMT. PT REQUIRED MOD ASSIST X 2 FOR SUPINE TO SIT; SITTING BALANCE GOOD ONCE BOTH FEET WERE ON FLOOR. PT A AND O X PERSON ONLY. EVEN WITH SEVERAL CUES, HE WAS UNABLE TO ORIENT TO PLACE. PRACTICED NUMEROUS TIMES WHAT TO DO FOR ANY NEEDS.. FINALLY WITH SEVERAL CUES AND CALL LIGHT IN HAND, HE KNEW TO PUSH THE TOP BUTTON. ASSISTED PT WITH SIT TO STAND WITH MOD ASSIST..TRANSFERRED FROM BED TO CHAIR WITH MOD ASSIST X 2. PROVIDED PT WITH WASH CLOTH FOR FACE AND HANDS. MAX ASSIST TO CLEAN BACK AND LES. MAX ASSIST WITH LE DRESSING. AGAIN CONTINUED EDUCATION REGARDING USE OF CALL LIGHT. PT CONT TO HAVE DIFFICULTY DUE TO CONFUSION. NICHELLE LUNA, OTR/L [phone]
--- NOTE | 2020-05-08 19:06 | NUR ---
RECEIVED BEDSIDE REPORT. ROUNDING COMPLETE. PATIENT IS ALERT AND PLEASANTLY CONFUSED. RESSPIRATIONS ARE EVEN AND UNLABORED. NO S/S OF DISTRESS. NO C/O PAIN. CALL LIGHT WITHIN REACH. WILL CPOC.
[2020-05-08 22:24] VITALS: BP 117/67
[2020-05-09 03:19] VITALS: BP 114/57
[2020-05-09 06:26] LABS: BASOPHILS 0.6 % (0-2); EOSINOPHILS 5.8 % (0-7); HEMATOCRIT 37.8 % (42.0-54.0); HEMOGLOBIN 12.4 g/dL (13.5-17.5); IMMATURE GRANULOCYTES 1.9 % (0-5); LYMPHOCYTES 14.3 % (15-50); MCHC 32.8 g/dL (31.0-37.0); MCV 88.5 fL (80.0-100.0); MEAN PLATELET VOLUME 10.2 fL (7.4-10.4); MONOCYTES 10.2 % (2-11); NEUTROPHILS 67.2 % (40-80); PLATELET COUNT 301 10x3/uL (130-400); RBC 4.27 10x6/uL (4.20-6.10); RDW 13.5 % (11.5-14.5); WBC 10.8 10x3/uL (4.8-10.8)
[2020-05-09 06:46] LABS: ANION GAP 9.3 mmol/L (8-16); BILIRUBIN - TOTAL 0.82 mg/dL (0.2-1.3); CARBON DIOXIDE 33.1 mmol/L (21.0-32.0); CREATININE - SERUM 1.4 mg/dL (0.6-1.3); POTASSIUM - SERUM 3.4 mmol/L (3.5-5.1); PROTEIN - SERUM 7.3 g/dL (6.4-8.2)
[2020-05-09 06:59] VITALS: BP 111/68
[2020-05-09 07:00] VITALS: BP 118/74
[2020-05-09] MEDS ORDERED: AMIODARONE HCL200 MG PO ×2 (10:29→10:37)
[2020-05-09] MEDS ORDERED: LASIX40 MG PO (10:29)
[2020-05-09] MEDS ORDERED: PLAVIX75 MG PO (10:29)
[2020-05-09 10:30] VITALS: BP 112/78
--- NOTE | 2020-05-09 11:18 | MORECARE ---
CASE MANAGEMENT DISCHARGE SUMMARY PATIENT: SOLOMON ZAIDI UNIT: [id number] ADM DATE: 05/01/20 AGE: 69 : 50 SEX: M ROOM/BED: D.4484 AUTHOR: JACKIE,DOC PHYSICIAN: REFERRING PHYSICIAN: FATIMAH MARIANO MD DATE OF SERVICE: 05/09/20 Discharge Plan Patient Name: SOLOMON ZAIDI Facility: [facility]:[place] : 1950 Planned Disposition: Intermediate Facility Anticipated Discharge Date: 05/04/20 Discharge Date: Expected LOS: 3 Initial Reviewer: [email or web address] Initial Review Date: 05/01/2020 Generated: 05/09/20 12:17 pm Comments DCP- Discharge Planning Updated by [id number]: Magaly Goldstein on 05/09/20 10:[address] CM received a call that patient can DC to the [facility] (per Trisha). Bimal (primary nurse) states should go via ambulance. Bimal to call repor to [facility]. DCS and med list/MAR faxed to [facility]. is in room and agrees with DC. IMM explained, signed by and given. She states she will take the CPM to [facility]. DCP- Discharge Planning Updated by [id number]: Pearl Grubbs on 05/08/20 1:[address] 1404: CM has contacted Mrs. Zaidi, in regards to bringing the patient's CPM with her when the patient is discharged. She verifies that she will take it to the nursing facility when she signs paperwork for patient's admission. Mrs. Zaidi is aware that the patient will be in quarantine for the first 14 days upon arrival to [facility]. CM contacted Claudia, [facility], who states she will have a male bed available 05/09. DCP- Discharge Planning Updated by [id number]: Magaly Goldstein on 05/04/20 12:[address] CM noted PT notes, recommending rehab. I spoke with patient, he is confused and unable to choose a rehab facility. I spoke with patient's on the phone and explained inpatient rehab vs SNF. She would like a referral to [facility]. I spoke with Trisha with [facility] and referral faxed. CM will continue to follow and assist with discharge planning/needs. DCP- Discharge Planning Updated by [id number]: Pearl Grubbs on 05/01/20 12:[address] CM met with patient and , Oly Zaidi ([phone]) regarding dc plans. Patient is drowsy and request that his in interview. 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 PCP: Dr. York. Pharmacy: [facility], [address] DME: walker, cane. A CPM was delivered to the home, as well ENGLISH AND READING INSTRUCTOR. CM discussed HHS, OP Therapy, Rehab, SNF. PT has not worked with the patient as yet, so CM will re-visit tomorrow in order to determine DC needs. CM left a copy of HH agencies and OP Therapy with the patient's . CM will follow and assist PRN with DC needs. DCPIA - Discharge Planning Initial Assessment Updated by [id number]: Pearl Grubbs on 05/01/20 1:58 pm * Is the patient Alert and Oriented? Yes * How many steps to enter\exit or inside your home? 3 wide w/r * PCP Dr. York * Pharmacy [email or web address], [address] * Preadmission Environment Home with Family * ADLs Independent * Equipment Cane Rolling Walker * Other Equipment CPM * List name and contact numbers for known caregivers / representatives who currently or will assist patient after discharge: Oly Zaidi () [phone] * Verbal permission to speak to the caregivers and representatives has been obtained from the patient. Yes * Community resources currently utilized None * Additional services required to return to the preadmission environment? Yes * Can the patient safely return to the preadmission environment? Yes * Has this patient been hospitalized within the prior 30 days at any hospital? 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 OP Therapy Reviewer: [id number] - Magaly Goldstein Notice Issued Date-Time: 05/04/2020 13:25 Notice Type: Patient Choice Letter Notice Delivered To: Family Member Relationship to Patient: Spouse Interventional Radiology Technologist Name: Oly Zaidi Delivery Method: PHONE - Phone Fifi Days: Prior Verbal Notification: Recipient Understood Notice: Yes Recipient Signature: Med Rec Note Co-signed by Attending: Coverage Notice Comment: [facility] for [facility] Reviewer: [id number] Stoney Goldstein Notice Issued Date-Time: 05/09/2020 11:12 Notice Type: IM Discharge Notice Notice Delivered To: Family Member Relationship to Patient: Spouse Interventional Radiology Technologist Name: Jaye Zaidi Delivery Method: HAND - Hand Delivered Fifi Days: Prior Verbal Notification: Recipient Understood Notice: Yes Recipient Signature: Yes Med Rec Note Co-signed by Attending: Coverage Notice Comment: IMM explained, signed by , given, copy placed in MR Last DP export: 05/08/20 1:16 p Patient Name: SOLOMON ZAIDI Page [id number] at 1118 All edits/amendments must be made on the electronic document DICTATION DATE: 05/09/201116 IMPREGNATING HELPER: CHIDI 05/09/201116 RPT#: [id number] DC DATE: STATUS: ADM IN [facility] [address] [place] [address] END OF REPORT
--- NOTE | 2020-05-09 13:19 | NUR ---
PT DISCHARGED TO [facility]. PT SIGNED PROPER DISCHARGE INSTRUCTIONS AND REMOVED ALL VALUABLES FROM THE ROOM.
--- NOTE | 2020-05-10 09:15 | MORECARE ---
CASE MANAGEMENT DISCHARGE SUMMARY PATIENT: SOLOMON ZAIDI UNIT: [id number] ADM DATE: 05/01/20 AGE: 69 : 50 SEX: M ROOM/BED: D.5964 AUTHOR: JACKIE,DOC PHYSICIAN: REFERRING PHYSICIAN: FATIMAH MARIANO MD DATE OF SERVICE: 05/10/20 Discharge Plan Patient Name: SOLOMON ZAIDI Facility: [facility]:[place] : 1950 Planned Disposition: Usp Facility Anticipated Discharge Date: 05/04/20 Discharge Date: 05/09/2020 Expected LOS: 3 Initial Reviewer: [email or web address] Initial Review Date: 05/01/2020 Generated: 05/10/20 10:14 am Comments DCP- Discharge Planning Updated by [id number]: Magaly Goldstein on 05/09/20 10:[address] CM received a call that patient can DC to the [facility] (per Trisha). Bimal (primary nurse) states should go via ambulance. Bimal to call repor to [facility]. DCS and med list/MAR faxed to [facility]. is in room and agrees with DC. IMM explained, signed by and given. She states she will take the CPM to [facility]. DCP- Discharge Planning Updated by [id number]: Pearl Grubbs on 05/08/20 1:[address] 1404: CM has contacted Mrs. Zaidi, in regards to bringing the patient's CPM with her when the patient is discharged. She verifies that she will take it to the nursing facility when she signs paperwork for patient's admission. Mrs. Zaidi is aware that the patient will be in quarantine for the first 14 days upon arrival to [facility]. CM contacted Claudia, [facility], who states she will have a male bed available 05/09. DCP- Discharge Planning Updated by [id number]: Magaly Goldstein on 05/04/20 12:[address] CM noted PT notes, recommending rehab. I spoke with patient, he is confused and unable to choose a rehab facility. I spoke with patient's on the phone and explained inpatient rehab vs SNF. She would like a referral to [facility]. I spoke with Trisha with [facility] and referral faxed. CM will continue to follow and assist with discharge planning/needs. DCP- Discharge Planning Updated by [id number]: Pearl Grubbs on 05/01/20 12:[address] CM met with patient and , Oly Zaidi ([phone]) regarding dc plans. Patient is drowsy and request that his in interview. 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 PCP: Dr. York. Pharmacy: [facility] DME: walker, cane. 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 CM discussed HHS, OP Therapy, Rehab, SNF. PT has not worked with the patient as yet, so CM will re-visit tomorrow in order to determine DC needs. CM left a copy of HH agencies and OP Therapy with the patient's . CM will follow and assist PRN with DC needs. DCPIA - Discharge Planning Initial Assessment Updated by [id number]: Pearl Grubbs on 05/01/20 1:58 pm * Is the patient Alert and Oriented? Yes * How many steps to enter\exit or inside your home? 3 wide w/r * PCP Dr. York * Pharmacy [facility] * Preadmission Environment Home with Family * ADLs Independent * Equipment Cane Rolling Walker * Other Equipment CPM * List name and contact numbers for known caregivers / representatives who currently or will assist patient after discharge: Oly Zaidi () [phone] * Verbal permission to speak to the caregivers and representatives has been obtained from the patient. Yes * Community resources currently utilized None * Additional services required to return to the preadmission environment? Yes * Can the patient safely return to the preadmission environment? Yes * Has this patient been hospitalized within the prior 30 days at any hospital? 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 OP Therapy Reviewer: [id number] - Magaly Goldstein Notice Issued Date-Time: 05/04/2020 13:25 Notice Type: Patient Choice Letter Notice Delivered To: Family Member Relationship to Patient: Spouse Liquid Hydrogen Plant Operator Name: Oly Zaidi Delivery Method: PHONE - Phone Fifi Days: Prior Verbal Notification: Recipient Understood Notice: Yes Recipient Signature: Med Rec Note Co-signed by Attending: Coverage Notice Comment: SHEF[facility] for [facility] Reviewer: [id number] Stoney Goldstein Notice Issued Date-Time: 05/09/2020 11:12 Notice Type: IM Discharge Notice Notice Delivered To: Family Member Relationship to Patient: Spouse Liquid Hydrogen Plant Operator Name: Jaye Zaidi Delivery Method: HAND - Hand Delivered Fifi Days: Prior Verbal Notification: Recipient Understood Notice: Yes Recipient Signature: Yes Med Rec Note Co-signed by Attending: Coverage Notice Comment: IMM explained, signed by , given, copy placed in MR Last DP export: 05/09/20 10:18 a Patient Name: SOLOMON ZAIDI Page [id number] at 0915 All edits/amendments must be made on the electronic document DICTATION DATE: 05/10/20913 CAR CARDER: CHIDI 05/10/20913 RPT#: [id number] DC DATE:05/09/20 STATUS: DIS IN [facility] [address] [place] [address] END OF REPORT
== END 2020-05-09 13:20 | DRG 469 ==
LOC: D.SDCHOLD 04-26 10:00 → D.M3 05-01 05:50 → D.M2 05-01 05:50 → D.SDCHOLD 05-01 05:50 → D.M3 05-01 09:49 → D.SDCHOLD 05-01 10:00 → D.M2 05-02 23:40
PROVIDERS: Family Medicine; Family Medicine Adult Medicine; Internal Medicine Interventional Cardiology; ADMIT Orthopaedic Surgery; ATTEND Orthopaedic Surgery
PROC: 0SRC0JZ Replacement of Right Knee Joint with Synthetic Substitute, Open Approach (ICD-10-PCS; principal; 2020-05-01 08:00)
DX: M17.11 Unilateral primary osteoarthritis, right knee (principal); I50.21 Acute systolic (congestive) heart failure; D62 Acute posthemorrhagic anemia; F03.90 Unspecified dementia, unspecified severity, without behavioral disturbance, psychotic disturbance, mood disturbance, and anxiety; I25.10 Atherosclerotic heart disease of native coronary artery without angina pectoris; J45.909 Unspecified asthma, uncomplicated; Z95.0 Presence of cardiac pacemaker; Z87.891 Personal history of nicotine dependence